=== PATIENT | male | born 1945 | race Caucasian/White ===

== ENCOUNTER 2019-11-15 17:44 | Inpatient (IN) ==
[2019-11-15] MEDS ORDERED: ADVIL SUSP 100 MG/5 ML ONE (18:02)
[2019-11-15] MEDS ORDERED: ADVIL SUSP 100 MG/5 ML PO ONE (18:05)
[2019-11-15] MEDS ORDERED: ROCEPHIN VIAL 1 GRAM 1 G in NS 100 ML IV + SPIKE MINIBAG* 100 ML IV SCH (18:15)
--- NOTE | 2019-11-15 18:15 | DR.GENAD ---
HPI - PCP Primary Care Physician: RANDA CASTELLANOS - Complaint/Symptoms Chief Complaint Doctors Comments: Patient states he has been shaking, fever, chills, cold and cough with yellow sputum production for the past 24 hours. states he worked at [employer] yesterday and complained of being cold and used the electric blanket but still could not get warm. States he is a patient of Randa Castellanos and has had stents in her heart two years ago at Dr. Humphries. He denies chest pain or SOB presently. States he has been sweating and having chills today and cannot get warm. He has decreased appetite but denies vomiting or diarrhea. He denies swelling of his hands or feet. Chief Complaint:: FAMILY AT SIDE STATED THAT HE WAS SITTING IN CHAIR 3HRS CABLE PULLER AND JUST STARTED SHAKING ALL OVER AND CANT STOP AND IS UNSTABLE AMBULATING. PATIENT DENIES HURTING OR ANYHTING ELSE OTHER THAN SHACKING AND CANT STOP - Nurses notes reviewed Nurses Notes Review: Yes - Source History Provided: Family Member - Mode of Arrival Mode of Arrival: Wheelchair - Timing Onset of Chief Complaint: 11/15/19 Came on: Gradually - Duration Duration: Constant How lon Duration: Days - Location Location: cough - Severity Severity: Moderate - Modifying Factors Worsens:: nothing Improves:: nothing PMH - PMH Past Medical History: Yes Past Medical History: Hypertension Past Medical History Comment: STENTS X3. SKIN CANCER Past Surgical History: Yes Past Surgical History Comment: HERNIA REPAIR - Family History History of Family Medical Conditions: No - Social History Alcohol Use: None Do you use any recreational Drugs:: No - infectious screening Have you traveled outside the country in the last 6 months?: No ROS - Review of Systems Constitutional: No Symptoms Reported, Chills, Diaphoresis, Fever, Loss of Appetite Eyes: No Symptoms Reported ENTM: No Symptoms Reported, Nose Congestion Respiratoy: No Symptoms Reported, Productive Cough, Short of Breath Cardiovascular: No Symptoms Reported. negative: See HPI, Chest Pain, Edema, Palpitations, Syncope, Cyanosis, Skin Mottling, Other Gastrointestinal/Abdominal: No Symptoms Reported. negative: See HPI, Abdominal Pain, Constipation, Diarrhea, Nausea, Vomiting, Food Intolerance, Other Genitourinary: No Symptoms Reported. negative: See HPI, Discharge, Dysuria, Frequency, Hematuria, Pain, Bleeding, Other Neurological: No Symptoms Reported Musculoskeletal: No Symptoms Reported Integumentary: No Symptoms Reported. negative: See HPI, Change in Color, Change in Hair/Nails, Dryness, Lesions, Lumps, Rash, Itching, Wound, Bruises, Juandice, Other Hematologic/Lymphatic: No Symptoms Reported. negative: See HPI, Anemia, Blood Clots, Easy Bleeding, Easy Bruising, Swollen Glands, Lymphadenopathy, Other Endocrine: No Symptoms Reported. negative: See HPI, Excessive Sweating, Flushing, Intolerance to Cold, Intolerance to Heat, Increased Hunger, Increased Thirst, Increased Urine, Unexplained Weight Gain, Unexplained Weight Loss, Failure to Thrive, Decreased Appetite, Other Psychiatric: No Symptoms Reported. negative: See HPI, Anxiety, Depression, Hallucinations, Excessive crying, Suicidal, Other PE - General Limitations: No Limitations General Appearance: Alert, In Distress (moderate) - Head Head Exam: Normal Inspection, Atraumatic, Normocephalic - Eyes Eye exam: Normal Appearance, PERRL, EOMI. negative: Scleral Icterus, Conjunctival Injection, Nystagmus, Miosis, Mydrasis, Periorbital Swelling, Periorbital Tenderness, Other - ENT ENT Exam: Normal Exam, Normal Oropharynx, Normal External Ear Exam, Mucous Membranes Moist, TM's Normal Bilaterally External Ear Exam: Normal External Inspection TM/Canal Exam: Bilateral Normal Nose Exam: Normal Nose Exam Mouth Exam: Normal Inspection. negative: Drooling, Trismus, Lip Swelling, Tongue Elevation, Tongue Swelling, Laceration, Other Throat Exam: Normal Inspection - Neck Neck Exam: Normal Inspection, Full ROM, Trachea Midline. negative: Tenderness, Meningismus, Lymphadenopathy, Thyromegaly, Other - Chest Chest Inspection: Normal Inspection, Symmetric Chest Wall Rise - Respiratory Respiratory Exam: Prolonged Expiratory Phase Respiratory Exam: Bilateral Decreased Breath Sounds, Left Clear to Auscultation, Right Rales, Lower Rales - Cardiovascular Cardiovascular Exam: Regular Rate, Normal Rhythm, Tachycardia, Normal Heart Sounds, Systolic Murmur - Abdominal Exam Abdominal Exam: Normal Inspection, Normal Bowel Sounds, Soft. negative: Distention, Tenderness, Guarding, Rebound, Rigidity, Dimnished Bowel Sounds, Hyperactive Bowel Sounds, Hypoactive Bowel Sounds, Organomegaly, Trauma, Incision, Ascites, Mass, Bruit, Pulsatile Mass, Hernia, Other Abdominal Tenderness: negative: RUQ, RLQ, LUQ, LLQ, Epigastrium, Suprapubic, Diffuse, Mild, Moderate, Severe, Other - Extremities Extremities Exam: Normal Inspection, Full ROM, Normal Capillary Refill. negative: Tenderness, Edema, Joint Swelling, Calf Tenderness, Other - Back Back Exam: Normal Inspection, Full ROM. negative: Tenderness, (R) CVA Tenderness, (L) CVA Tenderness, Muscle Spasm, Paraspinal Tenderness, Vertebral Tenderness, Rashes, (R) Sciatic Notch Tenderness, (L) Sciatic Notch Tendern, (R) Straight Leg Raise, (L) Straight Leg Raise, Other - Neurologic Neurological Exam: Alert, Oriented X3, CN II-XII Intact, Reflexes Normal. negative: Normal Gait (gait not tested) - Psychiatric Psychiatric Exam: Normal Affect, Normal Mood. negative: Depressed, Agitated, Anxious, Flat Affect, Manic, Homicidal Ideation, Suicidal Ideation, Other - Skin Skin Exam: Warm, Dry, Intact, Normal Color, Diaphoresis - Vital Signs Vitals: Temperature 99.8 F Pulse Rate 110 Respiratory Rate 22 Blood Pressure 106/54 O2 Sat by Pulse Oximetry 100 ROR - Labs Reviewed Laboratory Results Reviewed?: Yes (All labs and x-ray results reviewed and discussed with patient) Result Diagrams: 11/15/19 18:11 11/15/19 21:00 - XRAY XRAY Interpreted by: Radiologist (CXR: No acute cardiopulmonary disease) - EKG Rate: 136 [place]: Normal Rhythm: ST ST: Old, Inf, Infarct - Labs Reviewed Laboratory: 11/15/19 17:55 Sputum - Expectorated Sputum - Final WBC 2.7 X10^3/uL (3.6-10.0) L 11/15/19 18:11 RBC 4.47 X10^6/uL (4.7-6.0) L 11/15/19 18:11 Hgb 15.1 g/dL (13.5-18.0) 11/15/19 18:11 Hct 44.2 % (42.0-54.0) 11/15/19 18:11 MCV 98.9 fL (80.0-100.0) 11/15/19 18:11 MCH 33.8 pg (27.0-34.0) 11/15/19 18:11 MCHC 34.2 g/dL (33.0-35.0) 11/15/19 18:11 RDW 13.9 % (11.6-16.5) 11/15/19 18:11 Plt Count 108 X10^3/uL (150.0-450.0) L 11/15/19 18:11 MPV 7.0 fL (7.4-11.0) L 11/15/19 18:11 Neut % (Auto) 84.5 % (42.0-75.0) H 11/15/19 18:11 Lymph % (Auto) 14.1 % (21.0-51.0) L 11/15/19 18:11 [place] % (Auto) 1.1 % (0.0-13.0) 11/15/19 18:11 Eos % (Auto) 0.2 % (0.9-2.9) L 11/15/19 18:11 Baso % (Auto) 0.1 % (0.2-1.0) L 11/15/19 18:11 Neut # (Auto) 2.3 x10^3/uL (2.2-4.8) 11/15/19 18:11 Lymph # (Auto) 0.4 X10^3/uL (1.3-2.9) L 11/15/19 18:11 [place] # (Auto) 0 x10^3/uL (0.3-0.8) L 11/15/19 18:11 Eos # (Auto) 0.0 x10^3/uL (0.0-0.2) 11/15/19 18:11 Baso # (Auto) 0.0 X10^3/uL (0.0-0.1) 11/15/19 18:11 Absolute Nucleated RBC 0.1 /100WBC 11/15/19 18:11 Sodium 136 mmol/L (136-145) 11/15/19 18:11 Corrected Sodium TNP 11/15/19 18:11 Potassium 3.8 mmol/L (3.5-5.1) 11/15/19 18:11 Chloride 98 mmol/L (98-107) 11/15/19 18:11 Carbon Dioxide 25.9 mmol/L (21-32) 11/15/19 18:11 BUN 14 mg/dL (7-18) 11/15/19 18:11 Creatinine 1.24 mg/dL (0.70-1.30) 11/15/19 18:11 Est GFR (MDRD) Af Amer > 60 (>60) 11/15/19 18:11 Est GFR (MDRD) Non-Af > 60 (>60) 11/15/19 18:11 Glucose 76 mg/dL (65-99) 11/15/19 18:11 Lactic Acid 3.3 mmol/L (0.4-2.0) H 11/15/19 18:11 Calcium 8.9 mg/dL (8.5-10.1) 11/15/19 18:11 Corrected Calcium 9.5 mg/dL (8.5-10.1) 11/15/19 18:11 Total Bilirubin 1.80 mg/dL (0.2-1.0) H 11/15/19 18:11 AST 33 Units/L (15-37) 11/15/19 18:11 ALT 33 Units/L (12-78) 11/15/19 18:11 Alkaline Phosphatase 83 Units/L (46-116) 11/15/19 18:11 Total Protein 7.0 g/dL (6.4-8.2) 11/15/19 18:11 Albumin 3.3 g/dL (3.4-5.0) L 11/15/19 18:11 Globulin 3.7 g/dL (2.5-4.5) 11/15/19 18:11 Albumin/Globulin Ratio 0.9 Ratio (1.1-2.1) L 11/15/19 18:11 Specimen Type Clean catch urine 11/15/19 17:25 Urine Color Tyra (YELLOW) 11/15/19 17:25 Urine Appearance Clear (CLEAR) 11/15/19 17:25 Urine pH 7.0 (5.0 - 8.0) 11/15/19 17:25 Ur Specific [place] 1.015 (1.000-1.030) 11/15/19 17:25 Urine Protein 2+ (NEGATIVE) 11/15/19 17:25 Urine Glucose (UA) Negative (NEGATIVE) 11/15/19 17:25 Urine Ketones 2+ (NEGATIVE) 11/15/19 17:25 Urine Occult Blood 1+ (NEGATIVE) 11/15/19 17:25 Urine Nitrite Negative (NEGATIVE) 11/15/19 17: Urine Bilirubin 1+ (NEGATIVE) 11/15/19 17:25 Urine Urobilinogen Normal (NORMAL) 11/15/19 17:25 Ur Leukocyte Esterase 1+ (NEGATIVE) 11/15/19 17:25 Urine RBC 3-5 /HPF (0-3) A 11/15/19 17:25 Urine WBC 3-5 /HPF (0-5) 11/15/19 17:25 Ur Squamous Epith Cells Few /HPF (NEGATIVE) 11/15/19 17:25 Urine Bacteria Negative /HPF (NEGATIVE) 11/15/19 17:25 Hyaline Casts Rare /LPF (NEGATIVE) 11/15/19 17:25 Ur Culture Indicated? No/not indicated 11/15/19 17:25 Influenza Type A (PCR) Negative (NEGATIVE) 11/15/19 18:54 Influenza Type B (PCR) Negative (NEGATIVE) 11/15/19 18:54 Opioid - Opioid Risk Tool Age (Pedro box if 16-45): No History of Preadolescent Sexual Abuse: No Total: 0 Total Score Risk Category: Low Risk - Diagnosis Discharge Problem: SIRS (systemic inflammatory response syndrome), Sinus tachycardia, Sepsis Bronchitis, acute Qualifiers: Bronchitis organism: other organism Qualified Code(s): J20.8 - Acute bronchitis due to other specified organisms Neutropenia Qualifiers: Neutropenia type: unspecified Qualified Code(s): D70.9 - Neutropenia, unspecified - Discharge Plan Disposition: ADMITTED INPATIENT Condition: Stable
[2019-11-15] MEDS ORDERED: NS 1000 ML 1,000 ML ONE (18:16)
[2019-11-15] MEDS ORDERED: ROCEPHIN VIAL 1 GRAM ONE (18:21)
[2019-11-15] MEDS ORDERED: NS 100 ML IV + SPIKE MINIBAG* 100 ML IV ONE (18:21)
[2019-11-15] MEDS: NS 1000 ML 1,000 ML IV SCH (18:29)
[2019-11-15 18:46] LABS: ALANINE AMINOTRANSFERASE 33 Units/L (12-78); ALBUMIN 3.3 g/dL (3.4-5.0); ALKALINE PHOSPHATASE 83 Units/L (46-116); ASPARTATE AMINO TRANSFERASE 33 Units/L (15-37); BLOOD UREA NITROGEN 14 mg/dL (7-18); CALCIUM 8.9 mg/dL (8.5-10.1); CARBON DIOXIDE 25.9 mmol/L (21-32); CHLORIDE 98 mmol/L (98-107); COR CA(FOR HYPOALB) 9.5 mg/dL (8.5-10.1); CREATININE 1.24 mg/dL (0.70-1.30); SODIUM 136 mmol/L (136-145); eGFR NON BLACK RACES > 60 (>60)
[2019-11-15 18:48] LABS: LACTIC ACID 3.3 mmol/L (0.4-2.0)
[2019-11-15 18:52] LABS: BASOPHILS % (AUTO) 0.1 % (0.2-1.0); EOSINOPHILS % (AUTO) 0.2 % (0.9-2.9); HEMATOCRIT 44.2 % (42.0-54.0); HEMOGLOBIN 15.1 g/dL (13.5-18.0); LYMPHOCYTES # (AUTO) 0.4 X10^3/uL (1.3-2.9); LYMPHOCYTES % (AUTO) 14.1 % (21.0-51.0); MEAN CORPUSCULAR HEMOGLOBIN 33.8 pg (27.0-34.0); MEAN CORPUSCULAR HGB CONC 34.2 g/dL (33.0-35.0); MEAN CORPUSCULAR VOLUME 98.9 fL (80.0-100.0); MONOCYTES # (AUTO) 0 x10^3/uL (0.3-0.8); MONOCYTES % (AUTO) 1.1 % (0.0-13.0); NEUTROPHILS # (AUTO) 2.3 x10^3/uL (2.2-4.8); NEUTROPHILS % (AUTO) 84.5 % (42.0-75.0); PLATELET COUNT 108 X10^3/uL (150.0-450.0); RED BLOOD COUNT 4.47 X10^6/uL (4.7-6.0); RED CELL DISTRIBUTION WIDTH 13.9 % (11.6-16.5); WHITE BLOOD COUNT 2.7 X10^3/uL (3.6-10.0)
[2019-11-15] MEDS ORDERED: LEVAQUIN PREMIX IV 750 MG 750 MG/150 ML BAG IV SCH (19:00)
[2019-11-15] MEDS ORDERED: LEVAQUIN PREMIX IV 750 MG 750 MG/150 ML BAG IV ONE (19:10)
[2019-11-15 19:31] LABS: BILIRUBIN,URINE 1+ (NEGATIVE); BLOOD/HEMOGLOBIN,URINE 1+ (NEGATIVE); GLUCOSE, URINE NEGATIVE (NEGATIVE); KETONES,URINE 2+ (NEGATIVE); LEUKOCYTE ESTERASE ,URINE 1+ (NEGATIVE); NITRITES,URINE NEGATIVE (NEGATIVE); PROTEIN,URINE 2+ (NEGATIVE); UROBILINOGEN,URINE NORMAL (NORMAL)
[2019-11-15 19:41] LABS: APPEARANCE,URINE CLEAR (CLEAR); COLOR,URINE AMBER (YELLOW)
[2019-11-15 19:42] LABS: BACTERIA,URINE NEGATIVE /HPF (NEGATIVE); HYALINE CASTS, URINE RARE /LPF (NEGATIVE); SQUAMOUS EPITHELIAL CELL,UR FEW /HPF (NEGATIVE)
--- NOTE | 2019-11-15 19:51 | RAD ---
HISTORYpneumoniaSTUDYCHEST, PA/LAT ADULTCOMPARISONNoneFINDINGSThe trachea is midline. The cardiac silhouette is unremarkable . The lungs are clear without focal infiltrate or effusion. There is diffuse, mild interstitial disease. There is evidence of old granulomatous disease. The bony thorax is unremarkable.IMPRESSIONNo acute cardiopulmonary disease.Electronically signed by: LAN ENRIQUEZ (Nov 15, 2019 19:49:56)
[2019-11-15] MEDS ORDERED: NS 1/2 1000 ML IV 1,000 ML IV SCH (21:00)
[2019-11-15] MEDS ORDERED: NS 1/2 1000 ML IV 1,000 ML IV ONE (21:19)
[2019-11-15 21:25] LABS: ALANINE AMINOTRANSFERASE 30 Units/L (12-78); ALBUMIN 2.6 g/dL (3.4-5.0); ALKALINE PHOSPHATASE 84 Units/L (46-116); ASPARTATE AMINO TRANSFERASE 38 Units/L (15-37); BLOOD UREA NITROGEN 17 mg/dL (7-18); CALCIUM 8.4 mg/dL (8.5-10.1); CARBON DIOXIDE 26.2 mmol/L (21-32); CHLORIDE 98 mmol/L (98-107); COR CA(FOR HYPOALB) 9.5 mg/dL (8.5-10.1); COR NA(FOR HYPERGLY) 132 mmol/L (136-145); CREATININE 1.21 mg/dL (0.70-1.30); SODIUM 132 mmol/L (136-145); eGFR NON BLACK RACES > 60 (>60)
[2019-11-15] MEDS ORDERED: ZOSYN VIAL 4.5 GRAMS 4.5 G in NS 100 ML IV + SPIKE MINIBAG* 100 ML IV SCH (22:00)
[2019-11-15 22:13] VITALS: BMI 21.4
[2019-11-15] MEDS ORDERED: RESTORIL CAP 15 MG PO PRN (22:15)
[2019-11-15] MEDS ORDERED: POTASSIUM CHLORIDE LIQ 20 MEQ UDC PO PRN (22:50)
[2019-11-15] MEDS ORDERED: POTASSIUM CHL 60 MEQ/NS 0.45% 500 ML IV PRN (22:50)
[2019-11-15] MEDS ORDERED: K-RIDER 10 MEQ/NS 100 ML 10 MEQ/100 ML BAG IV PRN (22:50)
[2019-11-15] MEDS ORDERED: KLOR-CON PO PRN (22:50)
[2019-11-15] MEDS ORDERED: MICRO K EXTEN CAP 10 MEQ PO PRN (22:50)
[2019-11-15] MEDS ORDERED: K-DUR TAB 20 MEQ PO PRN (22:50)
[2019-11-15] MEDS ORDERED: POTASSIUM CHL 40 MEQ/NS 0.45% 500 ML IV PRN (22:50)
[2019-11-15] MEDS: ZOSYN VIAL 3.375 GRAMS 3.375 G in NS 100 ML IV + SPIKE MINIBAG* 100 ML IV SCH (22:59)
[2019-11-15] MEDS: ZOCOR TAB 10 MG PO SCH (22:59)
[2019-11-16] MEDS: XOPENEX 1.25 MG/3 ML NEBULE NEB SCH ×3 (05:20→20:50)
[2019-11-16] MEDS: ZOSYN VIAL 3.375 GRAMS 3.375 G in NS 100 ML IV + SPIKE MINIBAG* 100 ML IV SCH ×3 (05:31→21:30)
[2019-11-16 06:21] LABS: ALANINE AMINOTRANSFERASE 33 Units/L (12-78); ALBUMIN 2.5 g/dL (3.4-5.0); ALKALINE PHOSPHATASE 74 Units/L (46-116); ASPARTATE AMINO TRANSFERASE 35 Units/L (15-37); BASOPHILS % (AUTO) 0.2 % (0.2-1.0); BLOOD UREA NITROGEN 19 mg/dL (7-18); CALCIUM 8.5 mg/dL (8.5-10.1); CHLORIDE 99 mmol/L (98-107); COR CA(FOR HYPOALB) 9.7 mg/dL (8.5-10.1); CREATININE 1.25 mg/dL (0.70-1.30); HEMATOCRIT 38.8 % (42.0-54.0); HEMOGLOBIN 13.2 g/dL (13.5-18.0); LYMPHOCYTES # (AUTO) 0.8 X10^3/uL (1.3-2.9); LYMPHOCYTES % (AUTO) 5.8 % (21.0-51.0); MEAN CORPUSCULAR HEMOGLOBIN 33.6 pg (27.0-34.0); MEAN CORPUSCULAR VOLUME 98.9 fL (80.0-100.0); MEAN PLATELET VOLUME 7.4 fL (7.4-11.0); MONOCYTES # (AUTO) 1.1 x10^3/uL (0.3-0.8); MONOCYTES % (AUTO) 7.6 % (0.0-13.0); NEUTROPHILS # (AUTO) 12.3 x10^3/uL (2.2-4.8); NEUTROPHILS % (AUTO) 86.4 % (42.0-75.0); PLATELET COUNT 115 X10^3/uL (150.0-450.0); RED BLOOD COUNT 3.93 X10^6/uL (4.7-6.0); RED CELL DISTRIBUTION WIDTH 13.9 % (11.6-16.5); SODIUM 133 mmol/L (136-145); TOTAL PROTEIN 5.8 g/dL (6.4-8.2); WHITE BLOOD COUNT 14.2 X10^3/uL (3.6-10.0); eGFR NON BLACK RACES > 60 (>60)
[2019-11-16] MEDS ORDERED: LEVAQUIN PREMIX IV 750 MG 750 MG/150 ML BAG IV SCH (09:00)
[2019-11-16] MEDS ORDERED: COZAAR PO SCH (09:00)
[2019-11-16] MEDS ORDERED: NexIUM PO SCH (09:00)
[2019-11-16] MEDS ORDERED: MAGNESIUM SULFATE 1 GRAM/100 mL PREMIX 4 G/400 ML BAG IV ONE (09:05)
[2019-11-16] MEDS: MAGNESIUM SULFATE 1 GRAM/100 mL PREMIX 1 GM/100 ML BAG IV PRN ×4 (09:55→14:30)
[2019-11-16] MEDS: PROTONIX TAB 40 MG PO SCH (09:58)
[2019-11-16] MEDS: PLAVIX PO SCH (09:58)
[2019-11-16] MEDS: FERROUS GLUCONATE PO SCH (09:58)
[2019-11-16] MEDS: ASPIRIN EC 81 MG PO SCH (09:58)
[2019-11-16] MEDS: FLOMAX PO SCH (09:59)
--- NOTE | 2019-11-16 10:56 | DR.H&P ---
H&P History & Physical for Day of: H&P Date: 11/16/19 Chief Complaint Chief Complaint: cough, fever and chills Allergies Allergies Allergy/AdvReac Type Severity Reaction Status Date / Time No Known Drug Allergies Allergy Verified 11/15/19 17:58 History of Present Illness History of Present Illness: Mr. John is a 74y/o male with a PMH of CAD s/p PCI, HTN presented with cough, fever, chills and weakness. Patient states he was feeling dizzy for the past few days with decreased appetite and poor oral intake. He started shaking a lot yesterday so was brought in by his family. He reports mostly non-productive cough. He denies N/V or diarrhea. He reports bloating in the stomach. He was noted to be hypotensive on admission requiring IV fluids. ED work up included CXR which was negative for acute process. Lactate was elevated at 3.3. He was started on Levaquin, Zosyn and also Rocephin. Plan: will continue Rocephin, DC zosyn and levaquin. Add azithromycin. Resume home medications except anti-hypertensives, continue IVF. Past Medical History Past Medical History: Coronary Artery Disease, GERD and Hypertension Past Surgical History Surgical History: Angioplasty/Stents Family History Family Medical History: Diabetes Mellitus Social History Does patient currently use any type of tobacco product: No Have you used tobacco products in the last 12 months: No Type of Tobacco Use: None How many years tobacco product used: 20 Does any household member use tobacco: No Alcohol Use: None Drug Use: None Prescription drug monitoring program results: PDMP was not reviewed Medications Home Medications: No Known Drug Allergies Allergy (Verified 11/15/19 17:58) CONTINUE taking the following medications acetaminophen 650 mg PO PRN PRN 11/15/19 [History] aspirin [Aspir-81] 81 mg PO DAILY 11/15/19 [History] clopidogrel 75 mg PO DAILY 11/15/19 [History] esomeprazole magnesium [Nexium] 40 mg PO DAILY 11/15/19 [History] ferrous sulfate [iron] 325 mg PO DAILY 11/15/19 [History] losartan 50 mg PO DAILY 11/15/19 [History] red yeast rice 600 mg PO DAILY 11/15/19 [History] simvastatin 10 mg PO HS 11/15/19 [History] tamsulosin 0.4 mg PO DAILY 11/15/19 [History] Labs Result Diagrams: 11/16/19 04:10 11/16/19 04:10 Labs: 11/15/19 17:55 Sputum - Expectorated Sputum - Final Laboratory WBC 14.2 X10^3/uL (3.6-10.0) H D 11/16/19 04:10 RBC 3.93 X10^6/uL (4.7-6.0) L 11/16/19 04:10 Hgb 13.2 g/dL (13.5-18.0) L 11/16/19 04:10 Hct 38.8 % (42.0-54.0) L 11/16/19 04:10 MCV 98.9 fL (80.0-100.0) 11/16/19 04:10 MCH 33.6 pg (27.0-34.0) 11/16/19 04:10 MCHC 34.0 g/dL (33.0-35.0) 11/16/19 04:10 RDW 13.9 % (11.6-16.5) 11/16/19 04:10 Plt Count 115 X10^3/uL (150.0-450.0) L 11/16/19 04:10 MPV 7.4 fL (7.4-11.0) 11/16/19 04:10 Neut % (Auto) 86.4 % (42.0-75.0) H 11/16/19 04:10 Lymph % (Auto) 5.8 % (21.0-51.0) L 11/16/19 04:10 [place] % (Auto) 7.6 % (0.0-13.0) 11/16/19 04:10 Eos % (Auto) 0.0 % (0.9-2.9) L 11/16/19 04:10 Baso % (Auto) 0.2 % (0.2-1.0) 11/16/19 04:10 Neut # (Auto) 12.3 x10^3/uL (2.2-4.8) H 11/16/19 04:10 Lymph # (Auto) 0.8 X10^3/uL (1.3-2.9) L 11/16/19 04:10 [place] # (Auto) 1.1 x10^3/uL (0.3-0.8) H 11/16/19 04:10 Eos # (Auto) 0.0 x10^3/uL (0.0-0.2) 11/16/19 04:10 Baso # (Auto) 0.0 X10^3/uL (0.0-0.1) 11/16/19 04:10 Absolute Nucleated RBC 0.0 /100WBC 11/16/19 04:10 Sodium 133 mmol/L (136-145) L 11/16/19 04:10 Corrected Sodium TNP 11/16/19 04:10 Potassium 4.2 mmol/L (3.5-5.1) 11/16/19 04:10 Chloride 99 mmol/L (98-107) 11/16/19 04:10 Carbon Dioxide 26.0 mmol/L (21-32) 11/16/19 04:10 BUN 19 mg/dL (7-18) H 11/16/19 04:10 Creatinine 1.25 mg/dL (0.70-1.30) 11/16/19 04:10 Est GFR (MDRD) Af Amer > 60 (>60) 11/16/19 04:10 Est GFR (MDRD) Non-Af > 60 (>60) 11/16/19 04:10 Glucose 105 mg/dL (65-99) H 11/16/19 04:10 Lactic Acid 1.2 mmol/L (0.4-2.0) 11/15/19 21:00 Calcium 8.5 mg/dL (8.5-10.1) 11/16/19 04:10 Corrected Calcium 9.7 mg/dL (8.5-10.1) 11/16/19 04:10 Magnesium 1.4 mg/dL (1.7-2.9) L 11/16/19 04:10 Total Bilirubin 1.00 mg/dL (0.2-1.0) 11/16/19 04:10 AST 35 Units/L (15-37) 11/16/19 04:10 ALT 33 Units/L (12-78) 11/16/19 04:10 Alkaline Phosphatase 74 Units/L (46-116) 11/16/19 04:10 Total Protein 5.8 g/dL (6.4-8.2) L 11/16/19 04:10 Albumin 2.5 g/dL (3.4-5.0) L 11/16/19 04:10 Globulin 3.3 g/dL (2.5-4.5) 11/16/19 04:10 Albumin/Globulin Ratio 0.8 Ratio (1.1-2.1) L 11/16/19 04:10 Specimen Type Clean catch urine 11/15/19 17:25 Urine Color Tyra (YELLOW) 11/15/19 17:25 Urine Appearance Clear (CLEAR) 11/15/19 17:25 Urine pH 7.0 (5.0 - 8.0) 11/15/19 17:25 Ur Specific [place] 1.015 (1.000-1.030) 11/15/19 17:25 Urine Protein 2+ (NEGATIVE) 11/15/19 17:25 Urine Glucose (UA) Negative (NEGATIVE) 11/15/19 17:25 Urine Ketones 2+ (NEGATIVE) 11/15/19 17:25 Urine Occult Blood 1+ (NEGATIVE) 11/15/19 17:25 Urine Nitrite Negative (NEGATIVE) 11/15/19 17:25 Urine Bilirubin 1+ (NEGATIVE) 11/15/19 17:25 Urine Urobilinogen Normal (NORMAL) 11/15/19 17:25 Ur Leukocyte Esterase 1+ (NEGATIVE) 11/15/19 17:25 Urine RBC 3-5 /HPF (0-3) A 11/15/19 17:25 Urine WBC 3-5 /HPF (0-5) 11/15/19 17:25 Ur Squamous Epith Cells Few /HPF (NEGATIVE) 11/15/19 17:25 Urine Bacteria Negative /HPF (NEGATIVE) 11/15/19 17:25 Hyaline Casts Rare /LPF (NEGATIVE) 11/15/19 17:25 Ur Culture Indicated? No/not indicated 11/15/19 17:25 Influenza Type A (PCR) Negative (NEGATIVE) 11/15/19 18:54 Influenza Type B (PCR) Negative (NEGATIVE) 11/15/19 18:54 Review of Systems Constitutional: Fever, Chills and Weakness Eyes: No Symptoms Reported ENT: Nose Congestion Respiratory: Cough, SOB with Excertion and Sputum Cardiovascular: No Symptoms Reported Gastrointestinal: No Symptoms Reported Genitourinary: No Symptoms Reported Musculoskeletal: No Symptoms Reported Skin: No Symptoms Reported Neurological: No Symptoms Reported Physical Exam Vital Signs: Temperature 98.6 F Pulse Rate [Apical] 83 Pulse Rate 74 Respiratory Rate 28 Blood Pressure [Right Arm] 112/56 Blood Pressure 106/54 O2 Sat by Pulse Oximetry 100 Oriented: Normal Ear: Normal Nose: Normal Respiratory: Clear Throughout Cardiovascular: Normal Auscultation: Bowel Sounds: Normal Palpation: Normal Tenderness: Normal Musculoskeletal: Normal Psychiatric: Normal Mood Description: Calm Affect: Normal Speech Pattern: Clear and Appropriate Assessment/Plan (1) Hypotension: Qualifiers: Hypotension type: orthostatic hypotension Qualified Code(s): I95.1 - Orthostatic hypotension Status: Acute Plan: SBP in the 80s on admission, improved with hydration. Continue fluids. (2) Bronchitis, acute: Qualifiers: Bronchitis organism: other organism Qualified Code(s): J20.8 - Acute bronchitis due to other specified organisms Status: Acute Plan: CXR negative for infection, continue Rocephin and Azithromycin (3) SIRS (systemic inflammatory response syndrome): Status: Acute Plan: Hypotensive, neutropenic on admission. Improved Continue IV abx, follow cultures (4) CAD (coronary artery disease): Qualifiers: Associated angina: without angina Coronary Disease-Associated Artery/Lesion type: [place] artery [place] vs. transplanted heart: [place] heart Qualified Code(s): I25.10 - Atherosclerotic heart disease of [place] coronary artery without angina pectoris Status: Acute Plan: Hx of PCI x 3 Resume home medications except losartan due to hypotension and mild KARY Review H&P Reviewed: Yes Patient was examined?: Yes
[2019-11-16] MEDS ORDERED: ROCEPHIN VIAL 1 GRAM 1 G in NS 100 ML IV + SPIKE MINIBAG* 100 ML IV SCH (10:57)
[2019-11-16] MEDS ORDERED: ZITHROMAX TAB 250 MG PO SCH (11:00)
[2019-11-16] MEDS: PULMICORT NEB TX 0.5 MG NEB SCH ×2 (12:23→20:50)
[2019-11-16] MEDS: MYLICON TAB 80 MG CHEW PO SCH ×2 (12:29→21:30)
[2019-11-16] MEDS ORDERED: TYLENOL 325 MG TAB PO ONE (13:38)
[2019-11-16] MEDS: TYLENOL 325 MG TAB PO PRN (13:48)
[2019-11-16] MEDS ORDERED: PHARMACY CONSULT - VANCOMYCIN XX SCH (15:00)
[2019-11-16] MEDS: NS 1000 ML 1,000 ML IV SCH (15:08)
[2019-11-16] MEDS ORDERED: NS 100 ML IV + SPIKE MINIBAG* 100 ML IV ONE (15:13)
[2019-11-16] MEDS ORDERED: ZOSYN VIAL 3.375 GRAMS IV ONE (15:14)
[2019-11-16] MEDS ORDERED: VANCOMYCIN 1 GRAM PREMIX (ADDVANTAGE) 250 ML IV SCH (18:30)
[2019-11-16] MEDS ORDERED: VANCOMYCIN IV *PREMIX 1 G/200 ML BAG 1 G/200 ML PIGGYBACK IV ONE (20:24)
[2019-11-16] MEDS: ZOCOR TAB 10 MG PO SCH (20:52)
[2019-11-17] MEDS: TYLENOL 325 MG TAB PO PRN ×2 (03:02→12:47)
[2019-11-17 05:49] LABS: BASOPHILS % (AUTO) 0.1 % (0.2-1.0); EOSINOPHILS % (AUTO) 0.2 % (0.9-2.9); HEMATOCRIT 36.1 % (42.0-54.0); HEMOGLOBIN 12.2 g/dL (13.5-18.0); LYMPHOCYTES # (AUTO) 0.5 X10^3/uL (1.3-2.9); LYMPHOCYTES % (AUTO) 4.7 % (21.0-51.0); MEAN CORPUSCULAR HEMOGLOBIN 33.9 pg (27.0-34.0); MEAN CORPUSCULAR HGB CONC 33.9 g/dL (33.0-35.0); MEAN PLATELET VOLUME 7.7 fL (7.4-11.0); MONOCYTES % (AUTO) 8.8 % (0.0-13.0); NEUTROPHILS # (AUTO) 9.6 x10^3/uL (2.2-4.8); NEUTROPHILS % (AUTO) 86.2 % (42.0-75.0); PLATELET COUNT 122 X10^3/uL (150.0-450.0); RED BLOOD COUNT 3.61 X10^6/uL (4.7-6.0); RED CELL DISTRIBUTION WIDTH 13.6 % (11.6-16.5); WHITE BLOOD COUNT 11.2 X10^3/uL (3.6-10.0)
[2019-11-17] MEDS: ZOSYN VIAL 3.375 GRAMS 3.375 G in NS 100 ML IV + SPIKE MINIBAG* 100 ML IV SCH ×3 (05:49→22:25)
[2019-11-17 05:51] LABS: BLOOD UREA NITROGEN 12 mg/dL (7-18); CALCIUM 7.9 mg/dL (8.5-10.1); CARBON DIOXIDE 23.2 mmol/L (21-32); CHLORIDE 104 mmol/L (98-107); CREATININE 1.02 mg/dL (0.70-1.30); SODIUM 137 mmol/L (136-145); eGFR NON BLACK RACES > 60 (>60)
[2019-11-17] MEDS: NS 1000 ML 1,000 ML IV SCH (06:09)
[2019-11-17] MEDS: XOPENEX 1.25 MG/3 ML NEBULE NEB SCH ×3 (06:44→21:30)
--- NOTE | 2019-11-17 08:47 | PCM.PROG ---
Progress Note Progress Note for Day of Date of Exam: 11/17/19 Subjective Subjective: Patient seen at bedside, no acute events overnight. Patient states he feels better. He denies fever or chills. He reports dizziness has resolved. He states he was having some diarrhea prior to admission but that's normal for him. He does have diverticulosis and gets flares frequently. He states this was not like his usual flare up. He had 2 episodes of diarrhea since overnight. Denies vomiting. He reports bloating but no abdominal pain. One set of blood culture came back positive yesterday, switched to Vanc and Zosyn. Repeat blood cultures today, awaiting final results. Continue current treatment. BP improved with hydration. Sputum culture normal kirk, urine culture pending. WBC trending down. Will send stool studies. Past Medical Family Social History Past Med/Fam/Surg Hx: No changes since H&P Allergies: Allergies No Known Drug Allergies Allergy (Verified 11/15/19 17:58) Review of Systems ROS: No change since H&P Vital Signs and I&O's Vital Signs: Temperature 100.1 F Pulse Rate [Apical] 78 Pulse Rate 78 Respiratory Rate 25 Blood Pressure [Right Arm] 130/60 Blood Pressure 106/54 O2 Sat by Pulse Oximetry 100 Intake and Output: Intake & Output 11/14/19 11/15/19 11/16/19 11/17/19 22:59 22:59 23:59 23:59 Intake Total 950 / 950 Output Total 450 / 450 Balance 500 / 500 Physical Exam Oriented: Normal Ear: Normal Nose: Normal Respiratory: Normal Cardiovascular: Normal Auscultation: Bowel Sounds: Normal Tenderness: Normal Skin: Normal Musculoskeletal: Normal Psychiatric: Normal Mood Description: Calm Affect: Normal Speech Pattern: Clear and Appropriate Laboratory and Diagnostics Result Diagrams: 11/17/19 04:17 11/17/19 04:17 Labs: 11/15/19 18:11 Blood Blood Culture - Preliminary 11/16/19 12:40 Sputum - Expectorated Sputum Sputum Culture - Preliminary 11/16/19 12:40 Sputum - Expectorated Sputum - Final 11/15/19 17:55 Sputum - Expectorated Sputum Sputum Culture - Preliminary 11/15/19 17:55 Sputum - Expectorated Sputum - Final Laboratory WBC 11.2 X10^3/uL (3.6-10.0) H 11/17/19 04:17 RBC 3.61 X10^6/uL (4.7-6.0) L 11/17/19 04:17 Hgb 12.2 g/dL (13.5-18.0) L 11/17/19 04:17 Hct 36.1 % (42.0-54.0) L 11/17/19 04:17 MCV 100.0 fL (80.0-100.0) 11/17/19 04:17 MCH 33.9 pg (27.0-34.0) 11/17/19 04:17 MCHC 33.9 g/dL (33.0-35.0) 11/17/19 04:17 RDW 13.6 % (11.6-16.5) 11/17/19 04:17 Plt Count 122 X10^3/uL (150.0-450.0) L 11/17/19 04:17 MPV 7.7 fL (7.4-11.0) 11/17/19 04:17 Neut % (Auto) 86.2 % (42.0-75.0) H 11/17/19 04:17 Lymph % (Auto) 4.7 % (21.0-51.0) L 11/17/19 04:17 [place] % (Auto) 8.8 % (0.0-13.0) 11/17/19 04:17 Eos % (Auto) 0.2 % (0.9-2.9) L 11/17/19 04:17 Baso % (Auto) 0.1 % (0.2-1.0) L 11/17/19 04:17 Neut # (Auto) 9.6 x10^3/uL (2.2-4.8) H 11/17/19 04:17 Lymph # (Auto) 0.5 X10^3/uL (1.3-2.9) L 11/17/19 04:17 [place] # (Auto) 1.0 x10^3/uL (0.3-0.8) H 11/17/19 04:17 Eos # (Auto) 0.0 x10^3/uL (0.0-0.2) 11/17/19 04:17 Baso # (Auto) 0.0 X10^3/uL (0.0-0.1) 11/17/19 04:17 Absolute Nucleated RBC 0.0 /100WBC 11/17/19 04:17 Sodium 137 mmol/L (136-145) 11/17/19 04:17 Corrected Sodium TNP 11/17/19 04:17 Potassium 3.9 mmol/L (3.5-5.1) 11/17/19 04:17 Chloride 104 mmol/L (98-107) 11/17/19 04:17 Carbon Dioxide 23.2 mmol/L (21-32) 11/17/19 04:17 BUN 12 mg/dL (7-18) 11/17/19 04:17 Creatinine 1.02 mg/dL (0.70-1.30) 11/17/19 04:17 Est GFR (MDRD) Af Amer > 60 (>60) 11/17/19 04:17 Est GFR (MDRD) Non-Af > 60 (>60) 11/17/19 04:17 Glucose 102 mg/dL (65-99) H 11/17/19 04:17 Lactic Acid 1.2 mmol/L (0.4-2.0) 11/15/19 21:00 Calcium 7.9 mg/dL (8.5-10.1) L 11/17/19 04:17 Corrected Calcium 9.7 mg/dL (8.5-10.1) 11/16/19 04:10 Magnesium 2.0 mg/dL (1.7-2.9) 11/17/19 04:17 Total Bilirubin 1.00 mg/dL (0.2-1.0) 11/16/19 04:10 AST 35 Units/L (15-37) 11/16/19 04:10 ALT 33 Units/L (12-78) 11/16/19 04:10 Alkaline Phosphatase 74 Units/L (46-116) 11/16/19 04:10 Total Protein 5.8 g/dL (6.4-8.2) L 11/16/19 04:10 Albumin 2.5 g/dL (3.4-5.0) L 11/16/19 04:10 Globulin 3.3 g/dL (2.5-4.5) 11/16/19 04:10 Albumin/Globulin Ratio 0.8 Ratio (1.1-2.1) L 11/16/19 04:10 Specimen Type Clean catch urine 11/15/19 17:25 Urine Color Tyra (YELLOW) 11/15/19 17:25 Urine Appearance Clear (CLEAR) 11/15/19 17:25 Urine pH 7.0 (5.0 - 8.0) 11/15/19 17:25 Ur Specific [place] 1.015 (1.000-1.030) 11/15/19 17:25 Urine Protein 2+ (NEGATIVE) 11/15/19 17:25 Urine Glucose (UA) Negative (NEGATIVE) 11/15/19 17:25 Urine Ketones 2+ (NEGATIVE) 11/15/19 17:25 Urine Occult Blood 1+ (NEGATIVE) 11/15/19 17:25 Urine Nitrite Negative (NEGATIVE) 11/15/19 17:25 Urine Bilirubin 1+ (NEGATIVE) 11/15/19 17:25 Urine Urobilinogen Normal (NORMAL) 11/15/19 17:25 Ur Leukocyte Esterase 1+ (NEGATIVE) 11/15/19 17:25 Urine RBC 3-5 /HPF (0-3) A 11/15/19 17:25 Urine WBC 3-5 /HPF (0-5) 11/15/19 17:25 Ur Squamous Epith Cells Few /HPF (NEGATIVE) 11/15/19 17:25 Urine Bacteria Negative /HPF (NEGATIVE) 11/15/19 17:25 Hyaline Casts Rare /LPF (NEGATIVE) 11/15/19 17:25 Ur Culture Indicated? No/not indicated 11/15/19 17:25 Influenza Type A (PCR) Negative (NEGATIVE) 11/15/19 18:54 Influenza Type B (PCR) Negative (NEGATIVE) 11/15/19 18:54 Plan (1) Hypotension: Status: Acute Qualifiers: Hypotension type: orthostatic hypotension Qualified Code(s): I95.1 - Orthostatic hypotension Plan: Improved (2) Bronchitis, acute: Status: Acute Qualifiers: Bronchitis organism: other organism Qualified Code(s): J20.8 - Acute bronchitis due to other specified organisms Plan: CXR negative for infection (3) SIRS (systemic inflammatory response syndrome): Status: Acute Plan: Hypotensive, neutropenic on admission. Blood culture positive Continue IV abx, follow cultures (4) CAD (coronary artery disease): Status: Acute Qualifiers: Associated angina: without angina Coronary Disease-Associated Artery/Lesion type: [place] artery [place] vs. transplanted heart: [place] heart Qualified Code(s): I25.10 - Atherosclerotic heart disease of [place] coronary artery without angina pectoris Plan: Hx of PCI x 3 Resume home medications except losartan due to hypotension
[2019-11-17] MEDS ORDERED: VANCOMYCIN 1 GRAM PREMIX (ADDVANTAGE) 250 ML IV SCH (09:00)
[2019-11-17] MEDS: PULMICORT NEB TX 0.5 MG NEB SCH ×2 (09:13→21:30)
[2019-11-17] MEDS: ASPIRIN EC 81 MG PO SCH (09:36)
[2019-11-17] MEDS: FERROUS GLUCONATE PO SCH (09:37)
[2019-11-17] MEDS: FLOMAX PO SCH (09:37)
[2019-11-17] MEDS: MYLICON TAB 80 MG CHEW PO SCH ×2 (09:37→21:06)
[2019-11-17] MEDS: PLAVIX PO SCH (09:37)
[2019-11-17] MEDS: PROTONIX TAB 40 MG PO SCH (09:37)
[2019-11-17] MEDS: VANCOMYCIN IV *PREMIX 1 G/200 ML BAG 1 G/200 ML PIGGYBACK IV SCH ×2 (10:14→21:06)
[2019-11-17] MEDS ORDERED: MOTRIN TAB 400 MG PO ONE (16:01)
[2019-11-17] MEDS: ZyrTEC TAB 10 MG PO SCH (16:13)
[2019-11-17] MEDS: FLONASE NASAL SPRAY ENOSTRIL SCH (16:13)
[2019-11-17] MEDS: ZOCOR TAB 10 MG PO SCH (21:06)
[2019-11-17] MEDS ORDERED: RESTORIL CAP 15 MG PO ONE (21:13)
[2019-11-17] MEDS: RESTORIL CAP 15 MG PO PRN (21:25)
[2019-11-17] MEDS ORDERED: ROBITUSSIN DM ONE (22:56)
[2019-11-17] MEDS: ROBITUSSIN DM PO PRN (23:00)
[2019-11-17] MEDS ORDERED: LEVAQUIN PREMIX IV 750 MG 750 MG/150 ML BAG IV SCH (23:45)
[2019-11-18] MEDS: ZOSYN VIAL 3.375 GRAMS 3.375 G in NS 100 ML IV + SPIKE MINIBAG* 100 ML IV SCH ×3 (05:08→22:32)
[2019-11-18] MEDS: ROBITUSSIN DM PO PRN ×3 (05:09→21:46)
[2019-11-18 05:44] LABS: BASOPHILS % (AUTO) 0.1 % (0.2-1.0); EOSINOPHILS # (AUTO) 0.1 x10^3/uL (0.0-0.2); EOSINOPHILS % (AUTO) 0.7 % (0.9-2.9); HEMATOCRIT 36.1 % (42.0-54.0); HEMOGLOBIN 12.3 g/dL (13.5-18.0); LYMPHOCYTES # (AUTO) 0.6 X10^3/uL (1.3-2.9); MEAN CORPUSCULAR HGB CONC 34.1 g/dL (33.0-35.0); MEAN CORPUSCULAR VOLUME 99.9 fL (80.0-100.0); MEAN PLATELET VOLUME 7.9 fL (7.4-11.0); MONOCYTES # (AUTO) 0.8 x10^3/uL (0.3-0.8); NEUTROPHILS # (AUTO) 9.1 x10^3/uL (2.2-4.8); NEUTROPHILS % (AUTO) 85.2 % (42.0-75.0); PLATELET COUNT 130 X10^3/uL (150.0-450.0); RED BLOOD COUNT 3.61 X10^6/uL (4.7-6.0); WHITE BLOOD COUNT 10.7 X10^3/uL (3.6-10.0)
[2019-11-18 05:53] LABS: BLOOD UREA NITROGEN 7 mg/dL (7-18); CALCIUM 8.2 mg/dL (8.5-10.1); CARBON DIOXIDE 22.7 mmol/L (21-32); CHLORIDE 105 mmol/L (98-107); CREATININE 0.93 mg/dL (0.70-1.30); SODIUM 137 mmol/L (136-145); eGFR NON BLACK RACES > 60 (>60)
[2019-11-18] MEDS: XOPENEX 1.25 MG/3 ML NEBULE NEB SCH ×3 (06:08→20:20)
[2019-11-18] MEDS: PULMICORT NEB TX 0.5 MG NEB SCH ×2 (08:15→20:20)
[2019-11-18] MEDS ORDERED: PHARMACY COMMENT IV NR (08:30)
--- NOTE | 2019-11-18 08:38 | CT ---
HISTORYABDOMINAL PAIN, DIARRHEA, BACTERMEIASTUDYCT abdomen and pelvis after intravenous infusion of 100 mL Omnipaque 350. Sagittal and coronal reformations were provided. Dose reduction techniques were utilized.COMPARISONNoneFINDINGSThere are small bilateral pleural effusions. Near the dome of the right lobe of the liver is a low-attenuation 2 cm mass with slightly irregular borders and some peripheral nodular enhancement. Posteriorly in the right lobe is a similar lesion measuring 2.2 cm diameter with low-attenuation and irregular margins and some internal septations. There is a final lesion lateral to the gallbladder fossa measuring about 1 cm in diameter. There is a 7.5 mm low-attenuation nodule in the caudate lobe. The gallbladder appears contracted. The adrenal glands and spleen are unremarkable. There is enlargement of the uncinate process of the pancreas measuring up to 3.6 cm AP diameter and 5.6 cm coronal length. There is no encasement of the superior mesenteric vein. It is adjacent to the proximal portal vein. There is a 1.9 cm dorsal cyst in the mid body of the left kidney. There is no hydronephrosis. The appendix appears normal. There is a supraumbilical ventral hernia with a 5.4 cm wide defect in the abdominal wall. The hernia contains peritoneal fat only. There is severe sigmoid diverticulosis without stranding of adjacent fat planes. There is less severe diverticular involvement of the left colon. The prostate is mildly enlarged measuring 5 cm transverse diameter. There is no ascites or adenopathy. There is a small hiatal hernia. There are degenerative changes in the spine.IMPRESSION1. Small pleural effusions and small hiatal hernia2. Severe sigmoid diverticulosis3. Supraumbilical ventral hernia containing peritoneal fat through a 5.4 cm wide defect in the abdominal wall4. Mild enlargement of the prostate5. Enlarged uncinate process of the pancreas, isointense with body and tail but suspicious for neoplastic mass.6. Numerous liver lesions suspicious for metastatic diseaseElectronically signed by: UNIQUE BYERS (Nov 18, 2019 08:36:47)
[2019-11-18] MEDS: FERROUS GLUCONATE PO SCH (09:06)
[2019-11-18] MEDS: PLAVIX PO SCH (09:07)
[2019-11-18] MEDS: ZyrTEC TAB 10 MG PO SCH (09:07)
[2019-11-18] MEDS: FLOMAX PO SCH (09:07)
[2019-11-18] MEDS: MYLICON TAB 80 MG CHEW PO SCH ×2 (09:07→21:45)
[2019-11-18] MEDS: PROTONIX TAB 40 MG PO SCH (09:07)
[2019-11-18] MEDS: ASPIRIN EC 81 MG PO SCH (09:07)
[2019-11-18] MEDS: FLONASE NASAL SPRAY ENOSTRIL SCH (09:12)
[2019-11-18 09:19] LABS: ALBUMIN 2.4 g/dL (3.4-5.0); BILIRUBIN,DIRECT 0.3 mg/dL (0-0.2); TOTAL PROTEIN 5.3 g/dL (6.4-8.2)
[2019-11-18 09:32] LABS: CREATININE 0.98 mg/dL (0.70-1.30); VANCOMYCIN,TROUGH 8.6 ug/mL (15-20)
[2019-11-18] MEDS: VANCOMYCIN IV *PREMIX 1 G/200 ML BAG 1 G/200 ML PIGGYBACK IV SCH ×2 (09:55→21:45)
[2019-11-18] MEDS: TYLENOL 325 MG TAB PO PRN (12:09)
--- NOTE | 2019-11-18 13:39 | RAD ---
HISTORYSOB, FOLLOW UPSTUDYCHEST, 1 VIEWCOMPARISONChest film November 15, 2019FINDINGSThe trachea is midline. The cardiac silhouette is unremarkable. There is diffuse mild interstitial lung disease but no acute infiltrates or effusions. the bony thorax is unremarkable.IMPRESSIONMild chronic lung changes but no acute process and no change from the recent film 15 November 2019.Electronically signed by: BETTY DIOR (Nov 18, 2019 13:38:10)
[2019-11-18] MEDS ORDERED: LASIX IVP ONE (14:47)
--- NOTE | 2019-11-18 15:07 | PCM.PROG ---
Progress Note Progress Note for Day of Date of Exam: 11/18/19 Subjective Subjective: Patient seen at bedside, no events overnight. He states he feels slightly better. He reports SOB with exertion and ambulation in the room. He is wearing 2L NC. He continues to have 1-2 loose stools which he states is normal for him. He denies seeing any blood in the stool. He denies recent weight loss, does report decreased energy. He has been eating and drinking ok. Denies N/V. CTAP done yesterday showed sigmoid diverticulosis, pancreatic mass with liver metastasis concerning for malignancy. Findings discussed with patient and family. Dr. Hines consulted. Will order tumor markers. Patient's repeat blood cultures are negative, 1/2 set from admission is likely growing a contaminant, will obtain the final report tomorrow. Continue abx for now. Will get a CXR. CTAP did show small bilateral effusions, will give one dose of IV Lasix. Past Medical Family Social History Past Med/Fam/Surg Hx: No changes since H&P Allergies: Allergies No Known Drug Allergies Allergy (Verified 11/15/19 17:58) Review of Systems ROS: No change since H&P Vital Signs and I&O's Vital Signs: Temperature 98.3 F Pulse Rate [Apical] 85 Pulse Rate 93 Respiratory Rate 44 Blood Pressure [Right Arm] 121/59 Blood Pressure 132/60 O2 Sat by Pulse Oximetry 98 Intake and Output: Intake & Output 11/15/19 11/16/19 11/17/19 11/18/19 22:59 23:59 23:59 23:59 Intake Total 3270 / 3270 278 / 278 Output Total 550 / 550 325 / 325 Balance 2720 / 2720 -47 / -47 Physical Exam Oriented: Normal Ear: Normal Nose: Normal Respiratory: Normal Cardiovascular: Normal Auscultation: Bowel Sounds: Normal Tenderness: Normal Skin: Normal Musculoskeletal: Normal Psychiatric: Normal Mood Description: Calm Affect: Normal Speech Pattern: Clear and Appropriate Laboratory and Diagnostics Result Diagrams: 11/18/19 04:29 11/18/19 09:09 Labs: 11/17/19 09:06 Stool Stool Culture - Preliminary 11/17/19 09:06 Stool - Final 11/15/19 18:11 Blood Blood Culture - Preliminary 11/15/19 18:24 Blood Blood Culture - Preliminary 11/16/19 12:40 Sputum - Expectorated Sputum Sputum Culture - Final 11/16/19 12:40 Sputum - Expectorated Sputum - Final 11/15/19 17:55 Sputum - Expectorated Sputum Sputum Culture - Final 11/15/19 17:55 Sputum - Expectorated Sputum - Final 11/16/19 15:10 Urine,Clean Catch Urine Culture - Final Laboratory WBC 10.7 X10^3/uL (3.6-10.0) H 11/18/19 04:29 RBC 3.61 X10^6/uL (4.7-6.0) L 11/18/19 04:29 Hgb 12.3 g/dL (13.5-18.0) L 11/18/19 04:29 Hct 36.1 % (42.0-54.0) L 11/18/19 04:29 MCV 99.9 fL (80.0-100.0) 11/18/19 04:29 MCH 34.0 pg (27.0-34.0) 11/18/19 04:29 MCHC 34.1 g/dL (33.0-35.0) 11/18/19 04:29 RDW 14.0 % (11.6-16.5) 11/18/19 04:29 Plt Count 130 X10^3/uL (150.0-450.0) L 11/18/19 04:29 MPV 7.9 fL (7.4-11.0) 11/18/19 04:29 Neut % (Auto) 85.2 % (42.0-75.0) H 11/18/19 04:29 Lymph % (Auto) 6.0 % (21.0-51.0) L 11/18/19 04:29 [place] % (Auto) 8.0 % (0.0-13.0) 11/18/19 04:29 Eos % (Auto) 0.7 % (0.9-2.9) L 11/18/19 04:29 Baso % (Auto) 0.1 % (0.2-1.0) L 11/18/19 04:29 Neut # (Auto) 9.1 x10^3/uL (2.2-4.8) H 11/18/19 04:29 Lymph # (Auto) 0.6 X10^3/uL (1.3-2.9) L 11/18/19 04:29 [place] # (Auto) 0.8 x10^3/uL (0.3-0.8) 11/18/19 04:29 Eos # (Auto) 0.1 x10^3/uL (0.0-0.2) 11/18/19 04:29 Baso # (Auto) 0.0 X10^3/uL (0.0-0.1) 11/18/19 04:29 Absolute Nucleated RBC 0.0 /100WBC 11/18/19 04:29 Sodium 137 mmol/L (136-145) 11/18/19 04:29 Corrected Sodium TNP 11/18/19 04:29 Potassium 4.0 mmol/L (3.5-5.1) 11/18/19 04:29 Chloride 105 mmol/L (98-107) 11/18/19 04:29 Carbon Dioxide 22.7 mmol/L (21-32) 11/18/19 04:29 BUN 7 mg/dL (7-18) 11/18/19 04:29 Creatinine 0.98 mg/dL (0.70-1.30) 11/18/19 09:09 Est GFR (MDRD) Af Amer > 60 (>60) 11/18/19 04:29 Est GFR (MDRD) Non-Af > 60 (>60) 11/18/19 04:29 Glucose 92 mg/dL (65-99) 11/18/19 04:29 Lactic Acid 1.2 mmol/L (0.4-2.0) 11/15/19 21:00 Calcium 8.2 mg/dL (8.5-10.1) L 11/18/19 04:29 Corrected Calcium 9.7 mg/dL (8.5-10.1) 11/16/19 04:10 Magnesium 2.0 mg/dL (1.7-2.9) 11/17/19 04:17 Total Bilirubin 0.90 mg/dL (0.2-1.0) 11/18/19 04:29 Direct Bilirubin 0.30 mg/dL (0-0.2) H 11/18/19 04:29 Indirect Bilirubin 0.60 mg/dL (0.2-0.8) 11/18/19 04:29 AST 20 Units/L (15-37) 11/18/19 04:29 ALT 27 Units/L (12-78) 11/18/19 04:29 Alkaline Phosphatase 74 Units/L (46-116) 11/18/19 04:29 Total Protein 5.3 g/dL (6.4-8.2) L 11/18/19 04:29 Albumin 2.4 g/dL (3.4-5.0) L 11/18/19 04:29 Globulin 2.9 g/dL (2.5-4.5) 11/18/19 04:29 Albumin/Globulin Ratio 0.8 Ratio (1.1-2.1) L 11/18/19 04:29 Specimen Type Clean catch urine 11/15/19 17:25 Urine Color Tyra (YELLOW) 11/15/19 17:25 Urine Appearance Clear (CLEAR) 11/15/19 17:25 Urine pH 7.0 (5.0 - 8.0) 11/15/19 17:25 Ur Specific [place] 1.015 (1.000-1.030) 11/15/19 17:25 Urine Protein 2+ (NEGATIVE) 11/15/19 17:25 Urine Glucose (UA) Negative (NEGATIVE) 11/15/19 17:25 Urine Ketones 2+ (NEGATIVE) 11/15/19 17:25 Urine Occult Blood 1+ (NEGATIVE) 11/15/19 17:25 Urine Nitrite Negative (NEGATIVE) 11/15/19 17:25 Urine Bilirubin 1+ (NEGATIVE) 11/15/19 17:25 Urine Urobilinogen Normal (NORMAL) 11/15/19 17:25 Ur Leukocyte Esterase 1+ (NEGATIVE) 11/15/19 17:25 Urine RBC 3-5 /HPF (0-3) A 11/15/19 17:25 Urine WBC 3-5 /HPF (0-5) 11/15/19 17:25 Ur Squamous Epith Cells Few /HPF (NEGATIVE) 11/15/19 17:25 Urine Bacteria Negative /HPF (NEGATIVE) 11/15/19 17:25 Hyaline Casts Rare /LPF (NEGATIVE) 11/15/19 17:25 Ur Culture Indicated? No/not indicated 11/15/19 17:25 Stool Description 75g black loose 11/17/19 09:06 Stl Occult Blood (IFOB) Positive (NEGATIVE) A 11/17/19 09:06 Stool for White Cells Positive (NEGATIVE) A 11/17/19 09:06 Stl C. diff Tox B Gene Negative (NEGATIVE) 11/17/19 09:06 Stl C. diff 027-NAP1-BI Negative (NEGATIVE) 11/17/19 09:06 Vancomycin Trough 8.6 ug/mL (15-20) L 11/18/19 09:09 Influenza Type A (PCR) Negative (NEGATIVE) 11/15/19 18:54 Influenza Type B (PCR) Negative (NEGATIVE) 11/15/19 18:54 Plan (1) Hypotension: Status: Acute Qualifiers: Hypotension type: orthostatic hypotension Qualified Code(s): I95.1 - Orthostatic hypotension (2) Bronchitis, acute: Status: Acute Qualifiers: Bronchitis organism: other organism Qualified Code(s): J20.8 - Acute bronchitis due to other specified organisms Plan: CXR negative for infection (3) SIRS (systemic inflammatory response syndrome): Status: Acute Plan: Hypotensive, neutropenic on admission. Blood culture positive Continue IV abx, follow cultures (4) CAD (coronary artery disease): Status: Acute Qualifiers: Associated angina: without angina Coronary Disease-Associated Artery/Lesion type: [place] artery [place] vs. transplanted heart: [place] heart Qualified Code(s): I25.10 - Atherosclerotic heart disease of [place] coronary artery without angina pectoris Plan: Hx of PCI x 3 Resume home medications except losartan due to hypotension (5) Pancreatic mass: Status: Acute (6) Liver metastases: Status: Acute
[2019-11-18] MEDS ORDERED: DULCOLAX TAB EC 5 MG PO ONE ×2 (16:54→17:14)
[2019-11-18] MEDS ORDERED: CITROMA PO ONE (16:54)
[2019-11-18] MEDS ORDERED: CITROMA ONE (17:15)
[2019-11-18] MEDS ORDERED: NS 250 ML IV 250 ML IV ONE (21:10)
[2019-11-18] MEDS: ZOCOR TAB 10 MG PO SCH (21:45)
[2019-11-18] MEDS: RESTORIL CAP 15 MG PO PRN (21:46)
[2019-11-19] MEDS: XOPENEX 1.25 MG/3 ML NEBULE NEB SCH ×4 (05:14→18:42)
[2019-11-19] MEDS: ZOSYN VIAL 3.375 GRAMS 3.375 G in NS 100 ML IV + SPIKE MINIBAG* 100 ML IV SCH (05:23)
[2019-11-19] MEDS: TYLENOL 325 MG TAB PO PRN (05:23)
[2019-11-19 05:39] LABS: BASOPHILS % (AUTO) 0.1 % (0.2-1.0); EOSINOPHILS % (AUTO) 0.5 % (0.9-2.9); HEMATOCRIT 34.8 % (42.0-54.0); HEMOGLOBIN 12.1 g/dL (13.5-18.0); LYMPHOCYTES # (AUTO) 0.9 X10^3/uL (1.3-2.9); MEAN CORPUSCULAR HEMOGLOBIN 34.2 pg (27.0-34.0); MEAN CORPUSCULAR HGB CONC 34.7 g/dL (33.0-35.0); MEAN CORPUSCULAR VOLUME 98.4 fL (80.0-100.0); MEAN PLATELET VOLUME 7.5 fL (7.4-11.0); MONOCYTES # (AUTO) 1.1 x10^3/uL (0.3-0.8); MONOCYTES % (AUTO) 11.1 % (0.0-13.0); NEUTROPHILS # (AUTO) 7.6 x10^3/uL (2.2-4.8); NEUTROPHILS % (AUTO) 79.3 % (42.0-75.0); PLATELET COUNT 160 X10^3/uL (150.0-450.0); RED BLOOD COUNT 3.54 X10^6/uL (4.7-6.0); RED CELL DISTRIBUTION WIDTH 13.7 % (11.6-16.5); WHITE BLOOD COUNT 9.6 X10^3/uL (3.6-10.0)
[2019-11-19 06:21] LABS: BLOOD UREA NITROGEN 8 mg/dL (7-18); CALCIUM 8.3 mg/dL (8.5-10.1); CARBON DIOXIDE 23.1 mmol/L (21-32); CHLORIDE 104 mmol/L (98-107); CREATININE 0.88 mg/dL (0.70-1.30); MAGNESIUM 1.8 mg/dL (1.7-2.9); SODIUM 137 mmol/L (136-145); eGFR NON BLACK RACES > 60 (>60)
[2019-11-19] MEDS ORDERED: DIPRIVAN VIAL 20 ML ONE (07:52)
[2019-11-19] MEDS ORDERED: NS 500 ML IV 500 ML IV ONE (07:54)
--- NOTE | 2019-11-19 08:21 | OR.IMMED ---
Immediate Post-Op Note - Immediate Post-Op Note Pre-Op Diagnosis: liver mets , positive blood in stool Post-Op Diagnosis: extensive diverticulosis , no bleeding . no neoplasm or inflamation . mild nonspecific colitis and hemorrhoids . Procedure: colonoscopy with Bx. Surgeon/Communications Project Lead: Victor Manuel Specimens Removed: sigmoid Bx Drains: NONE Condition: Stable (to advance diet , plan for laparoscopy .)
[2019-11-19] MEDS: PULMICORT NEB TX 0.5 MG NEB SCH ×2 (08:44→20:02)
[2019-11-19] MEDS: FERROUS GLUCONATE PO SCH (09:54)
[2019-11-19] MEDS: COZAAR PO SCH (09:54)
[2019-11-19] MEDS: FLOMAX PO SCH (09:55)
[2019-11-19] MEDS: PROTONIX TAB 40 MG PO SCH (09:55)
[2019-11-19] MEDS: ZyrTEC TAB 10 MG PO SCH (09:55)
[2019-11-19] MEDS: FLONASE NASAL SPRAY ENOSTRIL SCH (09:55)
[2019-11-19] MEDS: MYLICON TAB 80 MG CHEW PO SCH ×2 (09:55→20:56)
[2019-11-19] MEDS ORDERED: STERILE WATER IRRIGATION IR ONE (12:43)
[2019-11-19] MEDS ORDERED: LASIX IVP ONE (15:34)
[2019-11-19] MEDS: MUCOMYST 20% 200 MG/ML NEB SCH ×2 (16:47→18:42)
[2019-11-19] MEDS: ZOCOR TAB 10 MG PO SCH (20:54)
[2019-11-19] MEDS: RESTORIL CAP 15 MG PO PRN (20:54)
--- NOTE | 2019-11-19 22:23 | PCM.PROG ---
Progress Note Progress Note for Day of Date of Exam: 11/19/19 Subjective Subjective: Patient seen at bedside post colonoscopy. He reports doing well. Colonoscopy showed some non-specific sigmoid diverticulosis, no mass or neoplasm. He is currently on regular diet, tolerating well. He is scheduled for a laparoscopy tomorrow for liver lesion biopsy. Patient and family updated at bedside. Cultures have been (-) so DC antibiotics. Monitor AM labs, follow surgery recommendations. Past Medical Family Social History Past Med/Fam/Surg Hx: No changes since H&P Allergies: Allergies No Known Drug Allergies Allergy (Verified 11/15/19 17:58) Review of Systems ROS: No change since H&P Vital Signs and I&O's Vital Signs: Temperature 98.9 F Pulse Rate [Apical] 85 Pulse Rate 75 Respiratory Rate 27 Blood Pressure [Right Arm] 121/59 Blood Pressure 137/65 O2 Sat by Pulse Oximetry 93 Intake and Output: Intake & Output 11/16/19 11/17/19 11/18/19 11/19/19 23:59 23:59 23:59 23:59 Intake Total 3270 / 3270 1509 / 1509 1059 / 1059 Output Total 550 / 550 925 / 925 Balance 2720 / 2720 584 / 584 1059 / 1059 Physical Exam Oriented: Normal Ear: Normal Nose: Normal Respiratory: Rales Cardiovascular: Normal Auscultation: Bowel Sounds: Normal Tenderness: Normal Skin: Normal Musculoskeletal: Normal Psychiatric: Normal Mood Description: Calm Affect: Normal Speech Pattern: Clear and Appropriate Laboratory and Diagnostics Result Diagrams: 11/20/19 04:02 11/20/19 04:02 Labs: 11/15/19 18:11 Blood Blood Culture - Preliminary 11/15/19 18:24 Blood Blood Culture - Preliminary 11/17/19 09:06 Stool Stool Culture - Final 11/17/19 09:06 Stool - Final 11/17/19 08:40 Blood Blood Culture - Preliminary 11/17/19 08:37 Blood Blood Culture - Preliminary 11/16/19 12:40 Sputum - Expectorated Sputum Sputum Culture - Final 11/16/19 12:40 Sputum - Expectorated Sputum - Final 11/15/19 17:55 Sputum - Expectorated Sputum Sputum Culture - Final 11/15/19 17:55 Sputum - Expectorated Sputum - Final 11/16/19 15:10 Urine,Clean Catch Urine Culture - Final Laboratory WBC 9.6 X10^3/uL (3.6-10.0) 11/19/19 04:25 RBC 3.54 X10^6/uL (4.7-6.0) L 11/19/19 04:25 Hgb 12.1 g/dL (13.5-18.0) L 11/19/19 04:25 Hct 34.8 % (42.0-54.0) L 11/19/19 04:25 MCV 98.4 fL (80.0-100.0) 11/19/19 04:25 MCH 34.2 pg (27.0-34.0) H 11/19/19 04:25 MCHC 34.7 g/dL (33.0-35.0) 11/19/19 04:25 RDW 13.7 % (11.6-16.5) 11/19/19 04:25 Plt Count 160 X10^3/uL (150.0-450.0) 11/19/19 04:25 MPV 7.5 fL (7.4-11.0) 11/19/19 04:25 Neut % (Auto) 79.3 % (42.0-75.0) H 11/19/19 04:25 Lymph % (Auto) 9.0 % (21.0-51.0) L 11/19/19 04:25 [place] % (Auto) 11.1 % (0.0-13.0) 11/19/19 04:25 Eos % (Auto) 0.5 % (0.9-2.9) L 11/19/19 04:25 Baso % (Auto) 0.1 % (0.2-1.0) L 11/19/19 04:25 Neut # (Auto) 7.6 x10^3/uL (2.2-4.8) H 11/19/19 04:25 Lymph # (Auto) 0.9 X10^3/uL (1.3-2.9) L 11/19/19 04:25 [place] # (Auto) 1.1 x10^3/uL (0.3-0.8) H 11/19/19 04:25 Eos # (Auto) 0.0 x10^3/uL (0.0-0.2) 11/19/19 04:25 Baso # (Auto) 0.0 X10^3/uL (0.0-0.1) 11/19/19 04:25 Absolute Nucleated RBC 0.0 /100WBC 11/19/19 04:25 Sodium 137 mmol/L (136-145) 11/19/19 04:25 Corrected Sodium TNP 11/19/19 04:25 Potassium 3.7 mmol/L (3.5-5.1) 11/19/19 04:25 Chloride 104 mmol/L (98-107) 11/19/19 04:25 Carbon Dioxide 23.1 mmol/L (21-32) 11/19/19 04:25 BUN 8 mg/dL (7-18) 11/19/19 04:25 Creatinine 0.88 mg/dL (0.70-1.30) 11/19/19 04:25 Est GFR (MDRD) Af Amer > 60 (>60) 11/19/19 04:25 Est GFR (MDRD) Non-Af > 60 (>60) 11/19/19 04:25 Glucose 92 mg/dL (65-99) 11/19/19 04:25 Lactic Acid 1.2 mmol/L (0.4-2.0) 11/15/19 21:00 Calcium 8.3 mg/dL (8.5-10.1) L 11/19/19 04:25 Corrected Calcium 9.7 mg/dL (8.5-10.1) 11/16/19 04:10 Magnesium 1.8 mg/dL (1.7-2.9) 11/19/19 04:25 Total Bilirubin 0.90 mg/dL (0.2-1.0) 11/18/19 04:29 Direct Bilirubin 0.30 mg/dL (0-0.2) H 11/18/19 04:29 Indirect Bilirubin 0.60 mg/dL (0.2-0.8) 11/18/19 04:29 AST 20 Units/L (15-37) 11/18/19 04:29 ALT 27 Units/L (12-78) 11/18/19 04:29 Alkaline Phosphatase 74 Units/L (46-116) 11/18/19 04:29 Total Protein 5.3 g/dL (6.4-8.2) L 11/18/19 04:29 Albumin 2.4 g/dL (3.4-5.0) L 11/18/19 04:29 Globulin 2.9 g/dL (2.5-4.5) 11/18/19 04:29 Albumin/Globulin Ratio 0.8 Ratio (1.1-2.1) L 11/18/19 04:29 Specimen Type Clean catch urine 11/15/19 17:25 Urine Color Tyra (YELLOW) 11/15/19 17:25 Urine Appearance Clear (CLEAR) 11/15/19 17:25 Urine pH 7.0 (5.0 - 8.0) 11/15/19 17:25 Ur Specific [place] 1.015 (1.000-1.030) 11/15/19 17:25 Urine Protein 2+ (NEGATIVE) 11/15/19 17:25 Urine Glucose (UA) Negative (NEGATIVE) 11/15/19 17:25 Urine Ketones 2+ (NEGATIVE) 11/15/19 17:25 Urine Occult Blood 1+ (NEGATIVE) 11/15/19 17:25 Urine Nitrite Negative (NEGATIVE) 11/15/19 17:25 Urine Bilirubin 1+ (NEGATIVE) 11/15/19 17:25 Urine Urobilinogen Normal (NORMAL) 11/15/19 17:25 Ur Leukocyte Esterase 1+ (NEGATIVE) 11/15/19 17:25 Urine RBC 3-5 /HPF (0-3) A 11/15/19 17:25 Urine WBC 3-5 /HPF (0-5) 11/15/19 17:25 Ur Squamous Epith Cells Few /HPF (NEGATIVE) 11/15/19 17:25 Urine Bacteria Negative /HPF (NEGATIVE) 11/15/19 17:25 Hyaline Casts Rare /LPF (NEGATIVE) 11/15/19 17:25 Ur Culture Indicated? No/not indicated 11/15/19 17:25 Stool Description 75g black loose 11/17/19 09:06 Stl Occult Blood (IFOB) Positive (NEGATIVE) A 11/17/19 09:06 Stool for White Cells Positive (NEGATIVE) A 11/17/19 09:06 Stl C. diff Tox B Gene Negative (NEGATIVE) 11/17/19 09:06 Stl C. diff 027-NAP1-BI Negative (NEGATIVE) 11/17/19 09:06 Vancomycin Trough 8.6 ug/mL (15-20) L 11/18/19 09:09 Influenza Type A (PCR) Negative (NEGATIVE) 11/15/19 18:54 Influenza Type B (PCR) Negative (NEGATIVE) 11/15/19 18:54 Tissue Pathology To follow 11/19/19 08:08 Plan (1) Hypotension: Status: Acute Qualifiers: Hypotension type: orthostatic hypotension Qualified Code(s): I95.1 - Orthostatic hypotension Plan: Resolved (2) Bronchitis, acute: Status: Acute Qualifiers: Bronchitis organism: other organism Qualified Code(s): J20.8 - Acute bronchitis due to other specified organisms Plan: CXR negative for infection (3) SIRS (systemic inflammatory response syndrome): Status: Acute Plan: (4) CAD (coronary artery disease): Status: Acute Qualifiers: Associated angina: without angina Coronary Disease-Associated Artery/Lesion type: [place] artery [place] vs. transplanted heart: [place] heart Qualified Code(s): I25.10 - Atherosclerotic heart disease of [place] coronary artery without angina pectoris Plan: Hx of PCI x 3 Resume home medications except losartan due to hypotension (5) Pancreatic mass: Status: Acute (6) Liver metastases: Status: Acute (7) Hypokalemia: Status: Acute (8) Sigmoid diverticulosis: Status: Acute
[2019-11-20] MEDS: MUCOMYST 20% 200 MG/ML NEB SCH ×3 (00:51→12:59)
[2019-11-20] MEDS: XOPENEX 1.25 MG/3 ML NEBULE NEB SCH ×3 (00:52→12:59)
[2019-11-20 06:46] LABS: BASOPHILS % (AUTO) 0.2 % (0.2-1.0); EOSINOPHILS # (AUTO) 0.1 x10^3/uL (0.0-0.2); HEMATOCRIT 38.2 % (42.0-54.0); LYMPHOCYTES # (AUTO) 0.8 X10^3/uL (1.3-2.9); LYMPHOCYTES % (AUTO) 7.7 % (21.0-51.0); MEAN CORPUSCULAR HEMOGLOBIN 33.8 pg (27.0-34.0); MEAN CORPUSCULAR VOLUME 99.2 fL (80.0-100.0); MEAN PLATELET VOLUME 7.3 fL (7.4-11.0); MONOCYTES # (AUTO) 1.1 x10^3/uL (0.3-0.8); MONOCYTES % (AUTO) 9.9 % (0.0-13.0); NEUTROPHILS # (AUTO) 8.8 x10^3/uL (2.2-4.8); NEUTROPHILS % (AUTO) 81.2 % (42.0-75.0); PLATELET COUNT 192 X10^3/uL (150.0-450.0); RED BLOOD COUNT 3.85 X10^6/uL (4.7-6.0); RED CELL DISTRIBUTION WIDTH 13.9 % (11.6-16.5); WHITE BLOOD COUNT 10.9 X10^3/uL (3.6-10.0)
[2019-11-20 07:02] LABS: BLOOD UREA NITROGEN 9 mg/dL (7-18); CALCIUM 8.5 mg/dL (8.5-10.1); CARBON DIOXIDE 24.5 mmol/L (21-32); CHLORIDE 105 mmol/L (98-107); CREATININE 0.89 mg/dL (0.70-1.30); SODIUM 139 mmol/L (136-145); eGFR NON BLACK RACES > 60 (>60)
[2019-11-20] MEDS ORDERED: K-RIDER 10 MEQ/NS 100 ML 10 MEQ/100 ML BAG IV PRN (07:05)
[2019-11-20] MEDS ORDERED: K-DUR TAB 20 MEQ PO PRN (07:05)
[2019-11-20] MEDS ORDERED: POTASSIUM CHLORIDE LIQ 20 MEQ UDC PO PRN (07:05)
[2019-11-20] MEDS ORDERED: MAGNESIUM SULFATE 1 GRAM/100 mL PREMIX 1 GM/100 ML BAG IV PRN (07:05)
[2019-11-20] MEDS ORDERED: POTASSIUM CHL 60 MEQ/NS 0.45% 500 ML IV PRN (07:05)
[2019-11-20] MEDS ORDERED: KLOR-CON PO PRN (07:05)
[2019-11-20] MEDS ORDERED: MICRO K EXTEN CAP 10 MEQ PO PRN (07:05)
[2019-11-20] MEDS ORDERED: POTASSIUM CHL 40 MEQ/NS 0.45% 500 ML IV PRN (07:05)
--- NOTE | 2019-11-20 08:20 | PCM.PROG ---
Progress Note Progress Note for Day of Date of Exam: 11/20/19 Subjective Subjective: Patient seen at bedside, no acute events overnight. He is scheduled for laparoscopy around 9 am. NPO since midnight. He denies any complaints, cough has loosened up with mucomyst. Labs reviewed, replace K. Tumor markers still pending. Will follow up after liver biopsy. Follow up surgery recommendations. Blood cultures from admission growing micrococcus which is likely a skin contaminant, will get final cultures today. Repeat cultures have been negative. Past Medical Family Social History Past Med/Fam/Surg Hx: No changes since H&P Allergies: Allergies No Known Drug Allergies Allergy (Verified 11/15/19 17:58) Review of Systems ROS: No change since H&P Vital Signs and I&O's Vital Signs: Temperature 100.2 F Pulse Rate [Apical] 85 Pulse Rate 101 Respiratory Rate 30 Blood Pressure [Right Arm] 121/59 Blood Pressure 146/68 O2 Sat by Pulse Oximetry 92 Intake and Output: Intake & Output 11/17/19 11/18/19 11/19/19 11/20/19 23:59 23:59 23:59 23:59 Intake Total 3270 / 3270 1509 / 1509 1559 / 1559 0 / 0 Output Total 550 / 550 925 / 925 350 / 350 600 / 600 Balance 2720 / 2720 584 / 584 1209 / 1209 -600 / -600 Physical Exam Oriented: Normal Ear: Normal Nose: Normal Respiratory: Wheezes and Rales Cardiovascular: Normal Auscultation: Bowel Sounds: Normal Tenderness: Normal Skin: Normal Musculoskeletal: Normal Psychiatric: Normal Mood Description: Calm Affect: Normal Speech Pattern: Clear and Appropriate Laboratory and Diagnostics Result Diagrams: 11/20/19 04:02 11/20/19 04:02 Labs: 11/15/19 18:11 Blood Blood Culture - Preliminary 11/15/19 18:24 Blood Blood Culture - Preliminary 11/17/19 09:06 Stool Stool Culture - Final 11/17/19 09:06 Stool - Final 11/17/19 08:40 Blood Blood Culture - Preliminary 11/17/19 08:37 Blood Blood Culture - Preliminary 11/16/19 12:40 Sputum - Expectorated Sputum Sputum Culture - Final 11/16/19 12:40 Sputum - Expectorated Sputum - Final 11/15/19 17:55 Sputum - Expectorated Sputum Sputum Culture - Final 11/15/19 17:55 Sputum - Expectorated Sputum - Final 11/16/19 15:10 Urine,Clean Catch Urine Culture - Final Laboratory WBC 10.9 X10^3/uL (3.6-10.0) H 11/20/19 04:02 RBC 3.85 X10^6/uL (4.7-6.0) L 11/20/19 04:02 Hgb 13.0 g/dL (13.5-18.0) L 11/20/19 04:02 Hct 38.2 % (42.0-54.0) L 11/20/19 04:02 MCV 99.2 fL (80.0-100.0) 11/20/19 04:02 MCH 33.8 pg (27.0-34.0) 11/20/19 04:02 MCHC 34.0 g/dL (33.0-35.0) 11/20/19 04:02 RDW 13.9 % (11.6-16.5) 11/20/19 04:02 Plt Count 192 X10^3/uL (150.0-450.0) 11/20/19 04:02 MPV 7.3 fL (7.4-11.0) L 11/20/19 04:02 Neut % (Auto) 81.2 % (42.0-75.0) H 11/20/19 04:02 Lymph % (Auto) 7.7 % (21.0-51.0) L 11/20/19 04:02 [place] % (Auto) 9.9 % (0.0-13.0) 11/20/19 04:02 Eos % (Auto) 1.0 % (0.9-2.9) 11/20/19 04:02 Baso % (Auto) 0.2 % (0.2-1.0) 11/20/19 04:02 Neut # (Auto) 8.8 x10^3/uL (2.2-4.8) H 11/20/19 04:02 Lymph # (Auto) 0.8 X10^3/uL (1.3-2.9) L 11/20/19 04:02 [place] # (Auto) 1.1 x10^3/uL (0.3-0.8) H 11/20/19 04:02 Eos # (Auto) 0.1 x10^3/uL (0.0-0.2) 11/20/19 04:02 Baso # (Auto) 0.0 X10^3/uL (0.0-0.1) 11/20/19 04:02 Absolute Nucleated RBC 0.0 /100WBC 11/20/19 04:02 Sodium 139 mmol/L (136-145) 11/20/19 04:02 Corrected Sodium TNP 11/20/19 04:02 Potassium 3.4 mmol/L (3.5-5.1) L 11/20/19 04:02 Chloride 105 mmol/L (98-107) 11/20/19 04:02 Carbon Dioxide 24.5 mmol/L (21-32) 11/20/19 04:02 BUN 9 mg/dL (7-18) 11/20/19 04:02 Creatinine 0.89 mg/dL (0.70-1.30) 11/20/19 04:02 Est GFR (MDRD) Af Amer > 60 (>60) 11/20/19 04:02 Est GFR (MDRD) Non-Af > 60 (>60) 11/20/19 04:02 Glucose 75 mg/dL (65-99) 11/20/19 04:02 Lactic Acid 1.2 mmol/L (0.4-2.0) 11/15/19 21:00 Calcium 8.5 mg/dL (8.5-10.1) 11/20/19 04:02 Corrected Calcium 9.7 mg/dL (8.5-10.1) 11/16/19 04:10 Magnesium 1.8 mg/dL (1.7-2.9) 11/20/19 04:02 Total Bilirubin 0.90 mg/dL (0.2-1.0) 11/18/19 04:29 Direct Bilirubin 0.30 mg/dL (0-0.2) H 11/18/19 04:29 Indirect Bilirubin 0.60 mg/dL (0.2-0.8) 11/18/19 04:29 AST 20 Units/L (15-37) 11/18/19 04:29 ALT 27 Units/L (12-78) 11/18/19 04:29 Alkaline Phosphatase 74 Units/L (46-116) 11/18/19 04:29 Total Protein 5.3 g/dL (6.4-8.2) L 11/18/19 04:29 Albumin 2.4 g/dL (3.4-5.0) L 11/18/19 04:29 Globulin 2.9 g/dL (2.5-4.5) 11/18/19 04:29 Albumin/Globulin Ratio 0.8 Ratio (1.1-2.1) L 11/18/19 04:29 Specimen Type Clean catch urine 11/15/19 17:25 Urine Color Tyra (YELLOW) 11/15/19 17:25 Urine Appearance Clear (CLEAR) 11/15/19 17:25 Urine pH 7.0 (5.0 - 8.0) 11/15/19 17:25 Ur Specific [place] 1.015 (1.000-1.030) 11/15/19 17:25 Urine Protein 2+ (NEGATIVE) 11/15/19 17:25 Urine Glucose (UA) Negative (NEGATIVE) 11/15/19 17:25 Urine Ketones 2+ (NEGATIVE) 11/15/19 17:25 Urine Occult Blood 1+ (NEGATIVE) 11/15/19 17:25 Urine Nitrite Negative (NEGATIVE) 11/15/19 17:25 Urine Bilirubin 1+ (NEGATIVE) 11/15/19 17:25 Urine Urobilinogen Normal (NORMAL) 11/15/19 17:25 Ur Leukocyte Esterase 1+ (NEGATIVE) 11/15/19 17:25 Urine RBC 3-5 /HPF (0-3) A 11/15/19 17:25 Urine WBC 3-5 /HPF (0-5) 11/15/19 17:25 Ur Squamous Epith Cells Few /HPF (NEGATIVE) 11/15/19 17:25 Urine Bacteria Negative /HPF (NEGATIVE) 11/15/19 17:25 Hyaline Casts Rare /LPF (NEGATIVE) 11/15/19 17:25 Ur Culture Indicated? No/not indicated 11/15/19 17:25 Stool Description 75g black loose 11/17/19 09:06 Stl Occult Blood (IFOB) Positive (NEGATIVE) A 11/17/19 09:06 Stool for White Cells Positive (NEGATIVE) A 11/17/19 09:06 Stl C. diff Tox B Gene Negative (NEGATIVE) 11/17/19 09:06 Stl C. diff [id number] Negative (NEGATIVE) 11/17/19 09:06 Vancomycin Trough 8.6 ug/mL (15-20) L 11/18/19 09:09 Influenza Type A (PCR) Negative (NEGATIVE) 11/15/19 18:54 Influenza Type B (PCR) Negative (NEGATIVE) 11/15/19 18:54 Tissue Pathology To follow 11/19/19 08:08 Plan (1) Hypotension: Status: Acute Qualifiers: Hypotension type: orthostatic hypotension Qualified Code(s): I95.1 - Orthostatic hypotension Plan: Resolved (2) Bronchitis, acute: Status: Acute Qualifiers: Bronchitis organism: other organism Qualified Code(s): J20.8 - Acute bronchitis due to other specified organisms Plan: CXR negative for infection (3) SIRS (systemic inflammatory response syndrome): Status: Acute Plan: (4) CAD (coronary artery disease): Status: Acute Qualifiers: Associated angina: without angina Coronary Disease-Associated Artery/Lesion type: [place] artery [place] vs. transplanted heart: [place] heart Qualified Code(s): I25.10 - Atherosclerotic heart disease of [place] coronary artery without angina pectoris Plan: Asa and Plavix on hold due to procedure (5) Pancreatic mass: Status: Acute (6) Liver metastases: Status: Acute (7) Hypokalemia: Status: Acute (8) Sigmoid diverticulosis: Status: Acute (9) Blood in stool: Status: Acute
[2019-11-20] MEDS ORDERED: LTA KIT LIDOCAINE 4% ONE (08:42)
[2019-11-20] MEDS ORDERED: QUELICIN (OR ANECTINE) ONE (08:42)
[2019-11-20] MEDS ORDERED: ZOFRAN INJ 4 MG VIAL ONE (08:42)
[2019-11-20] MEDS ORDERED: VERSED ONE (08:42)
[2019-11-20] MEDS ORDERED: EPHEDRINE SULFATE INJ ONE (08:42)
[2019-11-20] MEDS ORDERED: XYLOCAINE 2 % (PLAIN) ONE (08:42)
[2019-11-20] MEDS ORDERED: ROBINUL ONE (08:42)
[2019-11-20] MEDS ORDERED: SUPRANE ONE (08:42)
[2019-11-20] MEDS ORDERED: DIPRIVAN VIAL ONE (08:42)
[2019-11-20] MEDS ORDERED: NORCURON INJ 10 MG VIAL ONE (08:42)
[2019-11-20] MEDS: PULMICORT NEB TX 0.5 MG NEB SCH (08:59)
[2019-11-20] MEDS ORDERED: FENTANYL INJ 250 mcg ONE (09:03)
[2019-11-20] MEDS ORDERED: LR 1000 ML IV 1,000 ML IV ONE (09:29)
[2019-11-20] MEDS ORDERED: BACTROBAN TOPICAL OINT ONE (10:29)
[2019-11-20] MEDS ORDERED: REGLAN INJ 10 MG VIAL IVP PRN (10:45)
[2019-11-20] MEDS ORDERED: DILAUDID INJ IVP PRN (10:45)
[2019-11-20] MEDS ORDERED: ZOFRAN INJ 4 MG VIAL IVP PRN (10:45)
[2019-11-20] MEDS ORDERED: PHENERGAN INJ 25 MG IM PRN (10:45)
[2019-11-20] MEDS ORDERED: BENADRYL INJ 50 MG VIAL IVP PRN (10:45)
[2019-11-20] MEDS: MYLICON TAB 80 MG CHEW PO SCH (11:27)
[2019-11-20] MEDS: FLONASE NASAL SPRAY ENOSTRIL SCH (11:27)
[2019-11-20] MEDS: COZAAR PO SCH (11:27)
[2019-11-20] MEDS: FERROUS GLUCONATE PO SCH (11:27)
[2019-11-20] MEDS: FLOMAX PO SCH (11:27)
[2019-11-20] MEDS: PROTONIX TAB 40 MG PO SCH (11:28)
[2019-11-20] MEDS: ZyrTEC TAB 10 MG PO SCH (11:28)
--- NOTE | 2019-11-20 13:46 | W.DIS.FURT ---
Summary of Discharge Discharge Summary of Date Date of Exam: 11/20/19 Admission Date Date of Admission: 11/15/19 Admission Diagnosis Hospital Course: Mr. John is a 74y/o male with a PMH of CAD s/p PCI, HTN presented with cough, fever, chills and weakness. Patient states he was feeling dizzy for the past few days with decreased appetite and poor oral intake. He started shaking a lot yesterday so was brought in by his family. He reports mostly non-productive cough. He denies N/V or diarrhea. He reports bloating in the stomach. He was noted to be hypotensive on admission requiring IV fluids. ED work up included CXR which was negative for acute process. Lactate was elevated at 3.3. He was started on IV antibiotics and cultures were collected. Blood cultures on admisson came back positive, abx coverage was broaded with Vancomycin and Zosyn. Patient was also having intermittent diarrhea, stool studies were checked and were negative for infection but did show blood. CTAP was done which was concerning for pancreatic mass and liver metastasis. Tumor markers were ordered and Dr. Hines was consulted. Patient had a colonoscopy which showed some colitis in the sigmoid, no polyps or mass concerning for neoplasm. Patient also underwent biopsy of the liver lesion. All blood culture sets including the one from ED and repeat were negative. Abx were stopped. Patient was evaluated by PT and Rt. He did require oxygen for home. Patient was stable for discharge and will follow up with PCP and Dr. Hines in 1 week. Vital Signs: Vital Signs (72 hours) 11/17/19 13:47 11/17/19 14:00 11/17/19 15:00 Temperature Pulse Rate Pulse Rate [Apical] 97 H 102 H Respiratory Rate 18 20 20 Blood Pressure Blood Pressure [Right Arm] 132/63 132/60 O2 Sat by Pulse Oximetry 99 98 11/17/19 16:00 11/17/19 16:13 11/17/19 17:00 Temperature 99.0 F Pulse Rate Pulse Rate [Apical] 88 83 Respiratory Rate 18 20 22 Blood Pressure Blood Pressure [Right Arm] 130/58 129/58 O2 Sat by Pulse Oximetry 100 99 11/17/19 17:13 11/17/19 18:00 11/17/19 19:00 Temperature 98.9 F Pulse Rate 80 Pulse Rate [Apical] 85 Respiratory Rate 20 20 32 H Blood Pressure 130/60 Blood Pressure [Right Arm] 121/59 O2 Sat by Pulse Oximetry 100 100 11/17/19 19:30 11/17/19 20:00 11/17/19 20:30 Temperature Pulse Rate 81 79 83 Pulse Rate [Apical] Respiratory Rate 37 H 33 H 33 H Blood Pressure 121/58 129/60 136/62 Blood Pressure [Right Arm] O2 Sat by Pulse Oximetry 100 99 98 11/17/19 21:00 11/17/19 21:30 11/17/19 22:00 Temperature Pulse Rate 78 74 90 Pulse Rate [Apical] Respiratory Rate 34 H 25 H 41 H Blood Pressure 130/63 128/60 118/62 Blood Pressure [Right Arm] O2 Sat by Pulse Oximetry 95 92 L 97 11/17/19 22:30 11/17/19 23:00 11/17/19 23:30 Temperature 98.6 F Pulse Rate 97 H 86 82 Pulse Rate [Apical] Respiratory Rate 40 H 38 H 36 H Blood Pressure 124/59 122/58 127/60 Blood Pressure [Right Arm] O2 Sat by Pulse Oximetry 96 95 95 11/18/19 00:00 11/18/19 00:30 11/18/19 01:02 Temperature Pulse Rate 76 84 82 Pulse Rate [Apical] Respiratory Rate 31 H 39 H 39 H Blood Pressure 111/56 129/60 121/60 Blood Pressure [Right Arm] O2 Sat by Pulse Oximetry 100 93 L 93 L 11/18/19 02:00 11/18/19 03:00 11/18/19 04:00 Temperature 98.6 F Pulse Rate 75 80 81 Pulse Rate [Apical] Respiratory Rate 28 H 36 H 36 H Blood Pressure 145/63 132/63 141/63 Blood Pressure [Right Arm] O2 Sat by Pulse Oximetry 89 L 90 L 90 L 11/18/19 05:00 11/18/19 06:00 11/18/19 06:15 Temperature Pulse Rate 86 87 95 H Pulse Rate [Apical] Respiratory Rate 43 H 44 H 46 H Blood Pressure 143/65 134/60 Blood Pressure [Right Arm] O2 Sat by Pulse Oximetry 94 L 98 97 11/18/19 06:30 11/18/19 06:45 11/18/19 07:00 Temperature Pulse Rate 92 H 88 87 Pulse Rate [Apical] Respiratory Rate 40 H 43 H 42 H Blood Pressure 139/64 Blood Pressure [Right Arm] O2 Sat by Pulse Oximetry 99 100 100 11/18/19 07:15 11/18/19 07:30 11/18/19 07:45 Temperature Pulse Rate 90 80 84 Pulse Rate [Apical] Respiratory Rate 53 H 39 H 40 H Blood Pressure Blood Pressure [Right Arm] O2 Sat by Pulse Oximetry 100 100 100 11/18/19 08:00 11/18/19 08:01 11/18/19 08:15 Temperature 99.6 F Pulse Rate 95 H 95 H 82 Pulse Rate [Apical] Respiratory Rate 39 H 41 H 49 H Blood Pressure 143/66 Blood Pressure [Right Arm] O2 Sat by Pulse Oximetry 97 99 100 11/18/19 08:17 11/18/19 08:30 11/18/19 08:45 Temperature Pulse Rate 81 85 90 Pulse Rate [Apical] Respiratory Rate 44 H 43 H Blood Pressure Blood Pressure [Right Arm] O2 Sat by Pulse Oximetry 100 100 100 11/18/19 09:05 11/18/19 09:15 11/18/19 09:30 Temperature Pulse Rate 92 H 86 87 Pulse Rate [Apical] Respiratory Rate 30 H 41 H 41 H Blood Pressure Blood Pressure [Right Arm] O2 Sat by Pulse Oximetry 97 99 100 11/18/19 09:45 11/18/19 10:00 11/18/19 10:17 Temperature Pulse Rate 82 82 83 Pulse Rate [Apical] Respiratory Rate 40 H 41 H Blood Pressure 142/66 Blood Pressure [Right Arm] O2 Sat by Pulse Oximetry 98 98 11/18/19 10:30 11/18/19 10:45 11/18/19 11:00 Temperature Pulse Rate 85 86 89 Pulse Rate [Apical] Respiratory Rate 38 H 46 H 37 H Blood Pressure 128/61 Blood Pressure [Right Arm] O2 Sat by Pulse Oximetry 100 99 98 11/18/19 11:15 11/18/19 11:30 11/18/19 11:45 Temperature Pulse Rate 84 81 80 Pulse Rate [Apical] Respiratory Rate 49 H 38 H 38 H Blood Pressure Blood Pressure [Right Arm] O2 Sat by Pulse Oximetry 97 97 95 11/18/19 12:00 11/18/19 12:01 11/18/19 12:09 Temperature 100.5 F H Pulse Rate 94 H 96 H Pulse Rate [Apical] Respiratory Rate 43 H 32 H Blood Pressure 139/91 Blood Pressure [Right Arm] O2 Sat by Pulse Oximetry 97 96 11/18/19 12:15 11/18/19 12:30 11/18/19 12:45 Temperature Pulse Rate 85 81 82 Pulse Rate [Apical] Respiratory Rate 36 H 43 H 44 H Blood Pressure Blood Pressure [Right Arm] O2 Sat by Pulse Oximetry 100 98 100 11/18/19 13:00 11/18/19 13:09 11/18/19 13:15 Temperature Pulse Rate 80 79 Pulse Rate [Apical] Respiratory Rate 40 H 40 H 36 H Blood Pressure 134/62 Blood Pressure [Right Arm] O2 Sat by Pulse Oximetry 96 11/18/19 13:30 11/18/19 13:45 11/18/19 14:00 Temperature 98.3 F Pulse Rate 81 89 93 H Pulse Rate [Apical] Respiratory Rate 38 H 39 H 44 H Blood Pressure 132/60 Blood Pressure [Right Arm] O2 Sat by Pulse Oximetry 98 98 11/18/19 14:15 11/18/19 14:30 11/18/19 14:45 Temperature Pulse Rate 85 85 80 Pulse Rate [Apical] Respiratory Rate 36 H 37 H Blood Pressure Blood Pressure [Right Arm] O2 Sat by Pulse Oximetry 100 100 100 11/18/19 15:00 11/18/19 15:15 11/18/19 15:38 Temperature Pulse Rate 80 77 78 Pulse Rate [Apical] Respiratory Rate 35 H 34 H 41 H Blood Pressure 131/62 Blood Pressure [Right Arm] O2 Sat by Pulse Oximetry 100 100 11/18/19 15:45 11/18/19 16:00 11/18/19 16:01 Temperature 99.3 F Pulse Rate 73 93 H 86 Pulse Rate [Apical] Respiratory Rate 34 H 37 H 40 H Blood Pressure 126/58 Blood Pressure [Right Arm] O2 Sat by Pulse Oximetry 100 98 100 11/18/19 16:15 11/18/19 16:30 11/18/19 17:01 Temperature Pulse Rate 75 72 74 Pulse Rate [Apical] Respiratory Rate 39 H 35 H 39 H Blood Pressure Blood Pressure [Right Arm] O2 Sat by Pulse Oximetry 100 99 11/18/19 17:05 11/18/19 17:15 11/18/19 17:30 Temperature Pulse Rate 75 88 76 Pulse Rate [Apical] Respiratory Rate 41 H 48 H 40 H Blood Pressure 160/73 Blood Pressure [Right Arm] O2 Sat by Pulse Oximetry 99 95 11/18/19 17:45 11/18/19 18:00 11/18/19 18:15 Temperature Pulse Rate 73 73 78 Pulse Rate [Apical] Respiratory Rate 41 H 39 H 35 H Blood Pressure Blood Pressure [Right Arm] O2 Sat by Pulse Oximetry 95 96 95 11/18/19 20:20 11/18/19 21:23 11/18/19 21:24 Temperature Pulse Rate 82 95 H 93 H Pulse Rate [Apical] Respiratory Rate Blood Pressure 169/74 Blood Pressure [Right Arm] O2 Sat by Pulse Oximetry 92 L 96 98 11/18/19 22:00 11/18/19 23:03 11/18/19 23:05 Temperature Pulse Rate 89 92 H 97 H Pulse Rate [Apical] Respiratory Rate Blood Pressure 156/68 161/73 Blood Pressure [Right Arm] O2 Sat by Pulse Oximetry 96 100 100 11/19/19 00:00 11/19/19 01:07 11/19/19 01:11 Temperature Pulse Rate 92 H 90 Pulse Rate [Apical] Respiratory Rate 45 H 41 H Blood Pressure 159/71 154/68 Blood Pressure [Right Arm] O2 Sat by Pulse Oximetry 100 11/19/19 02:00 11/19/19 03:00 11/19/19 04:00 Temperature 98.9 F Pulse Rate 85 80 83 Pulse Rate [Apical] Respiratory Rate 38 H 37 H 41 H Blood Pressure 139/65 154/67 130/65 Blood Pressure [Right Arm] O2 Sat by Pulse Oximetry 100 100 100 11/19/19 05:00 11/19/19 05:23 11/19/19 06:00 Temperature Pulse Rate 80 80 Pulse Rate [Apical] Respiratory Rate 40 H 32 H 30 H Blood Pressure 138/62 136/61 Blood Pressure [Right Arm] O2 Sat by Pulse Oximetry 93 L 95 11/19/19 06:15 11/19/19 06:23 11/19/19 06:30 Temperature Pulse Rate 81 84 Pulse Rate [Apical] Respiratory Rate 32 H 31 H 32 H Blood Pressure Blood Pressure [Right Arm] O2 Sat by Pulse Oximetry 93 L 96 11/19/19 06:45 11/19/19 07:00 11/19/19 07:15 Temperature Pulse Rate 82 79 79 Pulse Rate [Apical] Respiratory Rate 35 H 31 H 32 H Blood Pressure 139/63 Blood Pressure [Right Arm] O2 Sat by Pulse Oximetry 98 98 98 11/19/19 07:30 11/19/19 08:24 11/19/19 08:25 Temperature 98.4 F Pulse Rate 77 72 72 Pulse Rate [Apical] Respiratory Rate 33 H Blood Pressure 125/60 Blood Pressure [Right Arm] O2 Sat by Pulse Oximetry 99 98 99 11/19/19 08:30 11/19/19 08:45 11/19/19 09:00 Temperature Pulse Rate 78 68 79 Pulse Rate [Apical] Respiratory Rate 34 H 31 H Blood Pressure 141/64 136/58 Blood Pressure [Right Arm] O2 Sat by Pulse Oximetry 98 100 99 11/19/19 09:15 11/19/19 09:30 11/19/19 09:45 Temperature Pulse Rate 74 77 80 Pulse Rate [Apical] Respiratory Rate 30 H 35 H 35 H Blood Pressure 141/65 130/61 134/63 Blood Pressure [Right Arm] O2 Sat by Pulse Oximetry 98 99 100 11/19/19 10:00 11/19/19 10:15 11/19/19 10:30 Temperature Pulse Rate 74 74 75 Pulse Rate [Apical] Respiratory Rate 30 H 32 H 37 H Blood Pressure 138/60 141/66 139/64 Blood Pressure [Right Arm] O2 Sat by Pulse Oximetry 100 100 100 11/19/19 10:45 11/19/19 11:00 11/19/19 11:28 Temperature Pulse Rate 76 76 71 Pulse Rate [Apical] Respiratory Rate 33 H 36 H Blood Pressure 128/62 149/67 Blood Pressure [Right Arm] O2 Sat by Pulse Oximetry 98 100 95 11/19/19 11:30 11/19/19 11:32 11/19/19 11:45 Temperature Pulse Rate 72 72 75 Pulse Rate [Apical] Respiratory Rate 37 H 37 H 37 H Blood Pressure 161/74 Blood Pressure [Right Arm] O2 Sat by Pulse Oximetry 96 96 94 L 11/19/19 12:00 11/19/19 12:15 11/19/19 12:30 Temperature 99.1 F Pulse Rate 75 75 77 Pulse Rate [Apical] Respiratory Rate 40 H 41 H 46 H Blood Pressure 152/69 Blood Pressure [Right Arm] O2 Sat by Pulse Oximetry 96 96 95 11/19/19 12:45 11/19/19 13:00 11/19/19 13:15 Temperature Pulse Rate 85 81 82 Pulse Rate [Apical] Respiratory Rate 45 H 43 H 45 H Blood Pressure 158/74 Blood Pressure [Right Arm] O2 Sat by Pulse Oximetry 96 95 97 11/19/19 13:30 11/19/19 13:33 11/19/19 13:45 Temperature Pulse Rate 88 98 H 90 Pulse Rate [Apical] Respiratory Rate 36 H 50 H 44 H Blood Pressure 138/64 Blood Pressure [Right Arm] O2 Sat by Pulse Oximetry 95 93 L 93 L 11/19/19 14:00 11/19/19 14:15 11/19/19 14:30 Temperature Pulse Rate 87 85 83 Pulse Rate [Apical] Respiratory Rate 36 H 43 H 44 H Blood Pressure 152/67 Blood Pressure [Right Arm] O2 Sat by Pulse Oximetry 94 L 94 L 94 L 11/19/19 14:45 11/19/19 15:00 11/19/19 15:15 Temperature Pulse Rate 87 81 79 Pulse Rate [Apical] Respiratory Rate 46 H 38 H 38 H Blood Pressure 141/65 Blood Pressure [Right Arm] O2 Sat by Pulse Oximetry 94 L 91 L 94 L 11/19/19 15:30 11/19/19 15:45 11/19/19 16:03 Temperature 98.8 F Pulse Rate 73 81 89 Pulse Rate [Apical] Respiratory Rate 37 H 36 H 49 H Blood Pressure 153/72 Blood Pressure [Right Arm] O2 Sat by Pulse Oximetry 96 94 L 92 L 11/19/19 16:15 11/19/19 16:30 11/19/19 16:45 Temperature Pulse Rate 87 87 87 Pulse Rate [Apical] Respiratory Rate 47 H 38 H 36 H Blood Pressure Blood Pressure [Right Arm] O2 Sat by Pulse Oximetry 89 L 91 L 89 L 11/19/19 17:00 11/19/19 17:15 11/19/19 17:30 Temperature Pulse Rate 93 H 94 H 93 H Pulse Rate [Apical] Respiratory Rate 34 H 35 H 36 H Blood Pressure 133/61 Blood Pressure [Right Arm] O2 Sat by Pulse Oximetry 91 L 88 L 90 L 11/19/19 17:45 11/19/19 18:00 11/19/19 19:00 Temperature Pulse Rate 94 H 95 H 90 Pulse Rate [Apical] Respiratory Rate 33 H 45 H 37 H Blood Pressure 139/65 141/65 Blood Pressure [Right Arm] O2 Sat by Pulse Oximetry 90 L 90 L 91 L 11/19/19 20:00 11/19/19 20:02 11/19/19 21:00 Temperature 98.9 F Pulse Rate 84 79 85 Pulse Rate [Apical] Respiratory Rate 30 H 26 H Blood Pressure 140/63 134/62 Blood Pressure [Right Arm] O2 Sat by Pulse Oximetry 90 L 93 L 95 11/19/19 22:00 11/19/19 23:00 11/20/19 00:00 Temperature 98.1 F Pulse Rate 75 69 79 Pulse Rate [Apical] Respiratory Rate 27 H 21 27 H Blood Pressure 137/65 129/63 148/68 Blood Pressure [Right Arm] O2 Sat by Pulse Oximetry 93 L 91 L 94 L 11/20/19 01:00 11/20/19 02:00 11/20/19 03:00 Temperature Pulse Rate 78 71 87 Pulse Rate [Apical] Respiratory Rate 28 H 29 H 43 H Blood Pressure 154/71 114/53 164/74 Blood Pressure [Right Arm] O2 Sat by Pulse Oximetry 100 94 L 96 11/20/19 04:00 11/20/19 05:00 11/20/19 06:00 Temperature 100.2 F H Pulse Rate 82 82 101 H Pulse Rate [Apical] Respiratory Rate 38 H 28 H 30 H Blood Pressure 164/72 145/64 146/68 Blood Pressure [Right Arm] O2 Sat by Pulse Oximetry 94 L 94 L 92 L 11/20/19 07:00 11/20/19 08:00 11/20/19 08:59 Temperature 99.1 F Pulse Rate 82 91 H 85 Pulse Rate [Apical] Respiratory Rate 36 H 33 H Blood Pressure 162/68 146/67 Blood Pressure [Right Arm] O2 Sat by Pulse Oximetry 91 L 90 L 91 L 11/20/19 09:00 11/20/19 09:52 11/20/19 10:37 Temperature 98.5 F Pulse Rate 84 104 H 100 H Pulse Rate [Apical] Respiratory Rate 33 H 20 20 Blood Pressure 148/65 132/60 137/63 Blood Pressure [Right Arm] O2 Sat by Pulse Oximetry 91 L 98 98 11/20/19 10:42 11/20/19 10:47 11/20/19 10:58 Temperature Pulse Rate 100 H 98 H 102 H Pulse Rate [Apical] Respiratory Rate 20 20 20 Blood Pressure 128/76 137/60 132/60 Blood Pressure [Right Arm] O2 Sat by Pulse Oximetry 98 98 98 11/20/19 11:02 11/20/19 11:06 11/20/19 11:20 Temperature Pulse Rate 101 H 101 H 97 H Pulse Rate [Apical] Respiratory Rate 20 20 Blood Pressure 142/60 140/64 Blood Pressure [Right Arm] O2 Sat by Pulse Oximetry 98 96 92 L 11/20/19 11:25 11/20/19 11:30 11/20/19 11:45 Temperature Pulse Rate 97 H 97 H 96 H Pulse Rate [Apical] Respiratory Rate 35 H 34 H 28 H Blood Pressure 140/64 146/68 146/67 Blood Pressure [Right Arm] O2 Sat by Pulse Oximetry 93 L 92 L 95 11/20/19 12:00 11/20/19 12:15 11/20/19 12:31 Temperature 99.7 F H Pulse Rate 100 H 97 H 105 H Pulse Rate [Apical] Respiratory Rate 35 H 37 H 36 H Blood Pressure 156/74 145/74 145/66 Blood Pressure [Right Arm] O2 Sat by Pulse Oximetry 94 L 92 L 91 L 11/20/19 12:45 11/20/19 13:00 11/20/19 13:30 Temperature Pulse Rate 94 H 96 H 97 H Pulse Rate [Apical] Respiratory Rate 31 H 36 H 33 H Blood Pressure 140/69 134/63 128/64 Blood Pressure [Right Arm] O2 Sat by Pulse Oximetry 92 L 95 94 L Labs: Laboratory Last Values WBC 10.9 X10^3/uL (3.6-10.0) H 11/20/19 04:02 RBC 3.85 X10^6/uL (4.7-6.0) L 11/20/19 04:02 Hgb 13.0 g/dL (13.5-18.0) L 11/20/19 04:02 Hct 38.2 % (42.0-54.0) L 11/20/19 04:02 MCV 99.2 fL (80.0-100.0) 11/20/19 04:02 MCH 33.8 pg (27.0-34.0) 11/20/19 04:02 MCHC 34.0 g/dL (33.0-35.0) 11/20/19 04:02 RDW 13.9 % (11.6-16.5) 11/20/19 04:02 Plt Count 192 X10^3/uL (150.0-450.0) 11/20/19 04:02 MPV 7.3 fL (7.4-11.0) L 11/20/19 04:02 Neut % (Auto) 81.2 % (42.0-75.0) H 11/20/19 04:02 Lymph % (Auto) 7.7 % (21.0-51.0) L 11/20/19 04:02 [place] % (Auto) 9.9 % (0.0-13.0) 11/20/19 04:02 Eos % (Auto) 1.0 % (0.9-2.9) 11/20/19 04:02 Baso % (Auto) 0.2 % (0.2-1.0) 11/20/19 04:02 Neut # (Auto) 8.8 x10^3/uL (2.2-4.8) H 11/20/19 04:02 Lymph # (Auto) 0.8 X10^3/uL (1.3-2.9) L 11/20/19 04:02 [place] # (Auto) 1.1 x10^3/uL (0.3-0.8) H 11/20/19 04:02 Eos # (Auto) 0.1 x10^3/uL (0.0-0.2) 11/20/19 04:02 Baso # (Auto) 0.0 X10^3/uL (0.0-0.1) 11/20/19 04:02 Absolute Nucleated RBC 0.0 /100WBC 11/20/19 04:02 Sodium 139 mmol/L (136-145) 11/20/19 04:02 Corrected Sodium TNP 11/20/19 04:02 Potassium 3.4 mmol/L (3.5-5.1) L 11/20/19 04:02 Chloride 105 mmol/L (98-107) 11/20/19 04:02 Carbon Dioxide 24.5 mmol/L (21-32) 11/20/19 04:02 BUN 9 mg/dL (7-18) 11/20/19 04:02 Creatinine 0.89 mg/dL (0.70-1.30) 11/20/19 04:02 Est GFR (MDRD) Af Amer > 60 (>60) 11/20/19 04:02 Est GFR (MDRD) Non-Af > 60 (>60) 11/20/19 04:02 Glucose 75 mg/dL (65-99) 11/20/19 04:02 Lactic Acid 1.2 mmol/L (0.4-2.0) 11/15/19 21:00 Calcium 8.5 mg/dL (8.5-10.1) 11/20/19 04:02 Corrected Calcium 9.7 mg/dL (8.5-10.1) 11/16/19 04:10 Magnesium 1.8 mg/dL (1.7-2.9) 11/20/19 04:02 Total Bilirubin 0.90 mg/dL (0.2-1.0) 11/18/19 04:29 Direct Bilirubin 0.30 mg/dL (0-0.2) H 11/18/19 04:29 Indirect Bilirubin 0.60 mg/dL (0.2-0.8) 11/18/19 04:29 AST 20 Units/L (15-37) 11/18/19 04:29 ALT 27 Units/L (12-78) 11/18/19 04:29 Alkaline Phosphatase 74 Units/L (46-116) 11/18/19 04:29 Total Protein 5.3 g/dL (6.4-8.2) L 11/18/19 04:29 Albumin 2.4 g/dL (3.4-5.0) L 11/18/19 04:29 Globulin 2.9 g/dL (2.5-4.5) 11/18/19 04:29 Albumin/Globulin Ratio 0.8 Ratio (1.1-2.1) L 11/18/19 04:29 Specimen Type Clean catch urine 11/15/19 17:25 Urine Color Tyra (YELLOW) 11/15/19 17:25 Urine Appearance Clear (CLEAR) 11/15/19 17:25 Urine pH 7.0 (5.0 - 8.0) 11/15/19 17:25 Ur Specific [place] 1.015 (1.000-1.030) 11/15/19 17:25 Urine Protein 2+ (NEGATIVE) 11/15/19 17:25 Urine Glucose (UA) Negative (NEGATIVE) 11/15/19 17:25 Urine Ketones 2+ (NEGATIVE) 11/15/19 17:25 Urine Occult Blood 1+ (NEGATIVE) 11/15/19 17:25 Urine Nitrite Negative (NEGATIVE) 11/15/19 17:25 Urine Bilirubin 1+ (NEGATIVE) 11/15/19 17:25 Urine Urobilinogen Normal (NORMAL) 11/15/19 17:25 Ur Leukocyte Esterase 1+ (NEGATIVE) 11/15/19 17:25 Urine RBC 3-5 /HPF (0-3) A 11/15/19 17:25 Urine WBC 3-5 /HPF (0-5) 11/15/19 17:25 Ur Squamous Epith Cells Few /HPF (NEGATIVE) 11/15/19 17:25 Urine Bacteria Negative /HPF (NEGATIVE) 11/15/19 17:25 Hyaline Casts Rare /LPF (NEGATIVE) 11/15/19 17:25 Ur Culture Indicated? No/not indicated 11/15/19 17:25 Stool Description 75g black loose 11/17/19 09:06 Stl Occult Blood (IFOB) Positive (NEGATIVE) A 11/17/19 09:06 Stool for White Cells Positive (NEGATIVE) A 11/17/19 09:06 Stl C. diff Tox B Gene Negative (NEGATIVE) 11/17/19 09:06 Stl C. diff [id number] Negative (NEGATIVE) 11/17/19 09:06 Vancomycin Trough 8.6 ug/mL (15-20) L 11/18/19 09:09 Influenza Type A (PCR) Negative (NEGATIVE) 11/15/19 18:54 Influenza Type B (PCR) Negative (NEGATIVE) 11/15/19 18:54 Tissue Pathology To follow 11/20/19 10:14 Reason For Visit: SEPSIS; BRONCHITIS R/O PNEUMONIA; NEUTROPENIA; Discharge Date Discharge Date: 11/20/19 Discharge Diagnosis All Active Problems (Updated 11/20/19 @ 08:20 by Aleyda Short) Blood in stool (Acute) Sigmoid diverticulosis (Acute) Hypokalemia (Acute) Liver metastases (Acute) Pancreatic mass (Acute) Hypotension (Acute) HTN (hypertension) (Acute) CAD (coronary artery disease) (Acute) SIRS (systemic inflammatory response syndrome) (Acute) Bronchitis, acute (Acute) Sinus tachycardia (Acute) Neutropenia (Acute) Sepsis (Acute) Plan of Treatment: Continue with present treatment and follow up plan. Pt is to keep follow up appointment as instructed and take medications as ordered. Discharge Medications Discharge Medications: No Known Drug Allergies Allergy (Verified 11/15/19 17:58) CONTINUE taking the following medications aspirin [Aspir-81] 81 mg PO DAILY 11/15/19 [History] clopidogrel 75 mg PO DAILY 11/15/19 [History] esomeprazole magnesium [Nexium] 40 mg PO DAILY 11/15/19 [History] ferrous sulfate [iron] 325 mg PO DAILY 11/15/19 [History] losartan 50 mg PO DAILY 11/15/19 [History] red yeast rice 600 mg PO DAILY 11/15/19 [History] simvastatin 10 mg PO HS 11/15/19 [History] tamsulosin 0.4 mg PO DAILY 11/15/19 [History] New Prescriptions albuterol sulfate 1.25 mg IN QID PRN #75 ml 11/20/19 [Rx] hydrocodone-acetaminophen 1 tab PO Q6H PRN 5 Days #20 tab MDD 4 tablets 11/20/19 [Rx] nebulizers #1 ea 11/20/19 [Rx] Follow up and Referral Follow Up: 1 Week (Dr. HINES ) 1 Week (PCP) Discharge Disposition Discharge Disposition: Home Discharge Condition: Stable
[2019-11-20] MEDS: ROBITUSSIN DM PO PRN (15:05)
[2019-11-20 15:31] VITALS: BP 137/71
== END 2019-11-20 16:15 | disposition home or self-care (01) | DRG 854 ==
LOC: ER 17:44 → ICU 20:08
PROVIDERS: ADMIT Internal Medicine; ATTEND Internal Medicine
PROC: LIVERBX (2019-11-20 08:45)
PROC: DIAGLAP (2019-11-20 08:45)
CPT/HCPCS: 36415; 71010; 71020; 71045; 71046; 74177; 80048; 80053; 80076; 80202; 81001; 82270; 82378; 82565; 83605; 83630; 83735; 85025; 86301; 86316; 87040; 87045; 87070; 87086; 87205; 87427; 87449; 87493; 87502; 87899; 93005; 94640; 96365; 96367; 96374; 96375; 97161; 99100; 99285; A4216; A4217; A4222; J0330; J0696; J1940; J1956; J2250; J2405; J2543; J2704; J3010; J3370; J3475; J3490; J7030; J7050; J7120; J7626

== ENCOUNTER 2023-02-15 12:57 | Observation (INO) ==
[2023-02-15 13:22] LABS: ABG BASE EXCESS 1.2 mmol/L (-2.0-2.0)
--- NOTE | 2023-02-15 13:27 | DR.SOBA ---
HPI Time Seen Time Seen by Provider: 02/15/23 13:15 Primary Care Physician Primary Care Physician: DR VANG Complaints Chief Complaint Doctors Comments: 77 y/o male sent in for evaluation. Home health nurse found the pt to have a low pulse ox today. Pt reports he has been having exertional dyspnea for the past month. Fine at rest, but becomes very s hort of breath with minimal exertion. + h/o CAD, s/p 5 stents. Denies chest pain, h/o CHF, h/o CA. No fever. Has a cough, productive of some white sputum. Denies chest pain, bowel or bladder issues. No edema. Has had decreased appetite, 5 lb weight lost over past month. Chief Complaint:: PT C/O ONE MONTH HISTORY OF EXERTIONAL SHORTNESS OF BREATH ASSOCIATED WITH PRODUCTIVE COUGH. DENIES ANY FEVER OR PAIN. COVID-19 Coronavirus risk:travel/contact w/high risk person: No Has patient experienced Coronavirus symptoms: No Reviewed Nurses Notes Reviewed: Yes Source History Provided: Patient Mode of Arrival Mode of Arrival: Ambulatory Timing Onset of Chief Complaint: 02/15/23 PMH PMH Past Medical History: Yes Past Medical History: Coronary Artery Disease, Dyslipidemia, Hypertension and Sleep Apnea Past Medical History Comment: BPH Past Surgical History: Yes Surgical History: Angioplasty/Stents Past Surgical History Comment: UMBILICAL HERNIA REPAIR Family History History of Family Medical Conditions: Yes Family Medical History: Diabetes Mellitus and Cancer Family Medical History Comment: ESRD Social History Does patient currently use any type of tobacco product: No Have you used tobacco products in the last 12 months: No Type of Tobacco Use: None Does any household member use tobacco: No Alcohol Use: None Do you use any recreational Drugs:: No Lives With: Spouse Lives Where: Home Travel Risk Coronavirus risk:travel/contact w/high risk person: No Has patient experienced Coronavirus symptoms: No Infectious screening In the last 2 months have you had wt loss of >10#?: NO Have you had fever, night sweats or hemotysis?: No Have you traveled outside the country in the last 6 months?: No Isolation: Standard ROS Review of Systems Constitutional: Weakness and Loss of Appetite Eyes: No Symptoms Reported ENTM: No Symptoms Reported Respiratoy: Productive Cough and Short of Breath Cardiovascular: No Symptoms Reported Gastrointestinal/Abdominal: No Symptoms Reported Genitourinary: No Symptoms Reported Neurological: Weakness Musculoskeletal: No Symptoms Reported Integumentary: No Symptoms Reported Hematologic/Lymphatic: No Symptoms Reported All Other Systems: Reviewed and Negative PE Vital Signs Vitals: Temperature 98.9 F Pulse Rate 75 Pulse Rate 101 Respiratory Rate 41 Respiratory Rate 24 Blood Pressure [Right Arm] 121/59 Blood Pressure 138/65 Blood Pressure 146/64 O2 Sat by Pulse Oximetry 97 O2 Sat by Pulse Oximetry 86 General General Appearance: Alert, In No Apparent Distress (at rest) and Other (+ dyspnea going from traige chiar to wheelchair.) Eyes Eye exam: PERRL and EOMI ENT ENT Exam: Normal Oropharynx and Mucous Membranes Moist Neck Neck Exam: Normal Inspection and Other (No JVD); negative Tenderness Respiratory Respiratory Exam: Other (+ bibasilar rales); negative Accessory Muscle Use or Re spiratory Distress Cardiovascular Cardiovascular Exam: Regular Rate, Normal Rhythm and Normal Heart Sounds Abdominal Exam Abdominal Exam: Normal Bowel Sounds and Soft; negative Tenderness or Organomegal y Extremities Extremities Exam: Normal Inspection; negative Edema Back Back Exam: Normal Inspection Neurologic Neurological Exam: Alert, Oriented X3 and CN II-XII Intact; negative Motor Sensory Deficit Skin Skin Exam: Warm and Dry COURSE Treatment Treatment: 77 y/o male with exertional dyspnea over the past month, with loss of appetite, weight loss. W/u initiated. ABG on RA - + low pO2. CXR - + increased irregular haziness of the left upper lateral lung field, not c/w consolidated pneumonia. Needs CTA of the lung for better evaluation of his lungs. CT currently down for several hours (maintenancde). Also recommend ECHO for evaluation of his EF. Pt reportedly had an abnormal CT of the abd 2020, with possible liver mets. Had a liver biopsy then, no abnormalities. Liver should be visualized on the CTA chest. Discussed with Dr Vang, will admit for observation. Given IV Rocephin for prophylactic coverage of possible pneumonia. ROR Labs Reviewed Laboratory Results Reviewed?: Yes Result Diagrams: 02/15/23 13:25 02/15/23 13:25 Laboratory: WBC 7.1 X10^3/uL (3.6-10.0) 02/15/23 13:25 RBC 4.48 X10^6/uL (4.7-6.0) L 02/15/23 13:25 Hgb 12.7 g/dL (13.5-18.0) L 02/15/23 13:25 Hct 38.7 % (42.0-54.0) L 02/15/23 13:25 MCV 86.4 fL (80.0-100.0) 02/15/23 13:25 MCH 28.4 pg (27.0-34.0) 02/15/23 13:25 MCHC 32.9 g/dL (33.0-35.0) L 02/15/23 13:25 RDW 21.5 % (11.6-16.5) H 02/15/23 13:25 Plt Count 272 X10^3/uL (150.0-450.0) 02/15/23 13:25 Plt Count Comment Adequate (ADEQUATE) 02/15/23 13:25 MPV 6.6 fL (7.4-11.0) L 02/15/23 13:25 Neut % (Auto) 71.9 % (42.0-75.0) 02/15/23 13:25 Lymph % (Auto) 16.4 % (21.0-51.0) L 02/15/23 13:25 [place] % (Auto) 7.6 % (0.0-13.0) 02/15/23 13:25 Eos % (Auto) 3.8 % (0.9-2.9) H 02/15/23 13:25 Baso % (Auto) 0.3 % (0.2-1.0) 02/15/23 13:25 Neut # (Auto) 5.1 x10^3/uL (2.2-4.8) H 02/15/23 13:25 Lymph # (Auto) 1.2 X10^3/uL (1.3-2.9) L 02/15/23 13:25 [place]pine # (Auto) 0.5 x10^3/uL (0.3-0.8) 02/15/23 13:25 Eos # (Auto) 0.3 x10^3/uL (0.0-0.2) H 02/15/23 13:25 Baso # (Auto) 0.0 X10^3/uL (0.0-0.1) 02/15/23 13:25 Absolute Nucleated RBC 0.0 /100WBC 02/15/23 13:25 Plt Morphology Comment Normal (NORMAL) 02/15/23 13:25 RBC Morphology Abnormal (NORMAL) 02/15/23 13:25 Anisocytosis 1+ A 02/15/23 13:25 D-Dimer 0.71 ug/ml (0.0-0.57) H 02/15/23 13:25 Sample Site Rb 02/15/23 13:11 ABG pH 7.450 (7.35-7.45) 02/15/23 13:11 ABG pCO2 36.0 mmHg (35.0-45.0) 02/15/23 13:11 ABG pO2 58.0 mmHg (80.0-100.0) L 02/15/23 13:11 ABG HCO3 25.0 mmol/L (22-26) 02/15/23 13:11 ABG O2 Saturation 91.0 % (90-100) 02/15/23 13:11 ABG Base Excess 1.2 mmol/L (-2.0-2.0) 02/15/23 13:11 Henry Test N/a 02/15/23 13:11 A-a Gradient 47.0 mmHg 02/15/23 13:11 FiO2 21.0 02/15/23 13:11 Blood Gas Comments Pt juana well elj 02/15/23 13:11 Sodium 138 mmol/L (136-145) 02/15/23 13:25 Corrected Sodium 139 mmol/L (136-145) 02/15/23 13:25 Potassium 4.1 mmol/L (3.5-5.1) 02/15/23 13:25 Chloride 103 mmol/L (98-107) 02/15/23 13:25 Carbon Dioxide 25.1 mmol/L (21-32) 02/15/23 13:25 BUN 10 mg/dL (7-18) 02/15/23 13:25 Creatinine 0.92 mg/dL (0.70-1.30) 02/15/23 13:25 Est GFR (MDRD) Af Amer > 60 (>60) 02/15/23 13:25 Est GFR (MDRD) Non-Af > 60 (>60) 02/15/23 13:25 Glucose 129 mg/dL (65-99) H 02/15/23 13:25 Calcium 8.1 mg/dL (8.5-10.1) L 02/15/23 13:25 Corrected Calcium 8.7 mg/dL (8.5-10.1) 02/15/23 13:25 Total Bilirubin 0.60 mg/dL (0.2-1.0) 02/15/23 13:25 AST 16 Units/L (15-37) 02/15/23 13:25 ALT 17 Units/L (12-78) 02/15/23 13:25 Alkaline Phosphatase 76 Units/L (46-116) 02/15/23 13:25 Troponin I High Sens 10.0 ng/L (4.0-60.0) 02/15/23 13:25 B-Natriuretic Peptide 94.1 pg/mL (0-79) H 02/15/23 13:25 Total Protein 6.8 g/dL (6.4-8.2) 02/15/23 13:25 Albumin 3.3 g/dL (3.4-5.0) L 02/15/23 13:25 Globulin 3.5 g/dL (2.5-4.5) 02/15/23 13:25 Albumin/Globulin Ratio 0.9 Ratio (1.1-2.1) L 02/15/23 13:25 Lipase 94 Units/L (73-393) 02/15/23 13:25 Total PSA 5.65 ng/mL (0.13-4.0) H 02/15/23 13:25 EKG Rate: 82 [place]: Normal Rhythm: NSR and PVCs ST: Normal Opioid Opioid Risk Tool Age (Pedro box if 16-45): No History of Preadolescent Sexual Abuse: No Total: 0 Total Score Risk Category: Low Risk Copyright: Josh WHITFIELD predicting aberrant behaviors Discharge Plan Diagnosis Discharge Problem: Exertional shortness of breath, Hypoxia Discharge Plan Patient Disposition: ADMITTED INPATIENT Condition: Stable
--- NOTE | 2023-02-15 13:33 | EKG ---
Test Reason : short of breath Blood Pressure : */* mmHG Vent. Rate : 82 BPM Atrial Rate : 82 BPM P-R Int : 152 ms QRS Dur : 78 ms QT Int : 348 ms P-R-T Axes : 40 51 16 degrees QTc Int : 406 ms Sinus rhythm with occasional premature ventricular complexes Possible Left atrial enlargement Borderline ECG No previous ECGs available Confirmed by Nilo Barrow ([id number]) on 02/15/2023 8:19:19 PM Referred By: Confirmed By: Nilo Barrow
[2023-02-15 13:39] LABS: BASOPHILS % (AUTO) 0.3 % (0.2-1.0); EOSINOPHILS # (AUTO) 0.3 x10^3/uL (0.0-0.2); EOSINOPHILS % (AUTO) 3.8 % (0.9-2.9); HEMATOCRIT 38.7 % (42.0-54.0); HEMOGLOBIN 12.7 g/dL (13.5-18.0); LYMPHOCYTES # (AUTO) 1.2 X10^3/uL (1.3-2.9); LYMPHOCYTES % (AUTO) 16.4 % (21.0-51.0); MEAN CORPUSCULAR HEMOGLOBIN 28.4 pg (27.0-34.0); MEAN CORPUSCULAR HGB CONC 32.9 g/dL (33.0-35.0); MEAN CORPUSCULAR VOLUME 86.4 fL (80.0-100.0); MEAN PLATELET VOLUME 6.6 fL (7.4-11.0); MONOCYTES # (AUTO) 0.5 x10^3/uL (0.3-0.8); MONOCYTES % (AUTO) 7.6 % (0.0-13.0); NEUTROPHILS # (AUTO) 5.1 x10^3/uL (2.2-4.8); NEUTROPHILS % (AUTO) 71.9 % (42.0-75.0); PLATELET COUNT 272 X10^3/uL (150.0-450.0); RED BLOOD COUNT 4.48 X10^6/uL (4.7-6.0); RED CELL DISTRIBUTION WIDTH 21.5 % (11.6-16.5); WHITE BLOOD COUNT 7.1 X10^3/uL (3.6-10.0)
[2023-02-15 13:53] LABS: ALANINE AMINOTRANSFERASE 17 Units/L (12-78); ALBUMIN 3.3 g/dL (3.4-5.0); ALKALINE PHOSPHATASE 76 Units/L (46-116); ASPARTATE AMINO TRANSFERASE 16 Units/L (15-37); BLOOD UREA NITROGEN 10 mg/dL (7-18); CALCIUM 8.1 mg/dL (8.5-10.1); CARBON DIOXIDE 25.1 mmol/L (21-32); CHLORIDE 103 mmol/L (98-107); COR CA(FOR HYPOALB) 8.7 mg/dL (8.5-10.1); COR NA(FOR HYPERGLY) 139 mmol/L (136-145); CREATININE 0.92 mg/dL (0.70-1.30); GLUCOSE 129 mg/dL (65-99); LIPASE 94 Units/L (73-393); POTASSIUM 4.1 mmol/L (3.5-5.1); SODIUM 138 mmol/L (136-145); TOTAL PROTEIN 6.8 g/dL (6.4-8.2); eGFR NON BLACK RACES > 60 (>60)
[2023-02-15 14:03] LABS: ANISOCYTOSIS 1+; PLATELET MORPHOLOGY COMMENT NORMAL (NORMAL)
[2023-02-15] MEDS ORDERED: ROCEPHIN VIAL 1 GRAM 1 G in NS 100 ML IV 100 ML IVP STA (15:23)
[2023-02-15] MEDS ORDERED: ROCEPHIN VIAL 1 GRAM ONE (15:25)
[2023-02-15] MEDS ORDERED: ROCEPHIN VIAL 1 GRAM IV ONE (15:31)
[2023-02-15] MEDS: ROCEPHIN VIAL 1 GRAM 1 G in NS 100 ML IV 100 ML IV SCH (15:48)
[2023-02-15] MEDS ORDERED: TYLENOL 325 MG TAB PO PRN (16:41)
--- NOTE | 2023-02-15 19:14 | CT ---
HISTORYHYPOXIA, EXERTIONAL DYSPNEASTUDYCTA CHESTCOMPARISONTECHNIQUEMultiple axial images of the chest were obtained from the thoracic inlet to the upper abdomen after the administration of IV contrast. 3D reconstructions utilizing axial MIPS imaging was performed and reviewed. Dose reduction techniques including Automated Exposure Control (AEC) and adjustment of mA and kV were utilized.FINDINGSThe heart size is mildly enlarged. There is multi-vessel coronary atherosclerosis. The main pulmonary artery measures 3.1 cm in diameter. There is excellent contrast enhancement in the pulmonary circulation and no pulmonary embolus. There are reactive sized mediastinal and hilar lymph nodes some of which are containing calcifications. The airways are grossly clear. There is subpleural emphysematous change versus bronchiectasis in several lobes. There is nonspecific interstitial prominence which could be interstitial lung disease, fibrosis, or possibly some interstitial edema. There is no pleural effusion. There is a small hiatal hernia. There is diverticulosis coli but no diverticulitis. There is no worrisome bone marrow lesion.IMPRESSION1. Cardiomegaly. 2. Negative for pulmonary embolus. 2. Mixed emphysema and interstitial lung disease. Question active interstitial lung disease versus edema.Electronically signed by: Rahul Haney (Feb 15, 2023 19:13:14)
[2023-02-15] MEDS ORDERED: ZOCOR TAB 10 MG PO SCH (21:00)
--- NOTE | 2023-02-15 23:27 | RAD ---
STUDY: FRONTAL VIEW CHESTCOMPARISON: NoneHISTORY: EXERTIONAL DYSPNEAFINDINGS:Airspace disease is seen in left mid and bilateral lower lung zones.The heart size is within normal limits.The mediastinum is unremarkable.There is no evidence of pleural effusion or gross pneumothorax.The trachea is midline.IMPRESSION:Airspace disease is seen in left mid and bilateral lower lung zones. This may represent acute or chronic airspace disease. Follow-up to complete resolution may be obtained as clinically indicated indicated.Electronically signed by: Cody Campos (Feb 15, 2023 23:26:55)
[2023-02-16 06:02] LABS: BASOPHILS % (AUTO) 0.3 % (0.2-1.0); EOSINOPHILS # (AUTO) 0.3 x10^3/uL (0.0-0.2); EOSINOPHILS % (AUTO) 4.7 % (0.9-2.9); HEMATOCRIT 36.5 % (42.0-54.0); HEMOGLOBIN 12.3 g/dL (13.5-18.0); LYMPHOCYTES # (AUTO) 1.1 X10^3/uL (1.3-2.9); LYMPHOCYTES % (AUTO) 15.5 % (21.0-51.0); MEAN CORPUSCULAR HEMOGLOBIN 28.9 pg (27.0-34.0); MEAN CORPUSCULAR HGB CONC 33.6 g/dL (33.0-35.0); MEAN PLATELET VOLUME 6.9 fL (7.4-11.0); MONOCYTES # (AUTO) 0.7 x10^3/uL (0.3-0.8); MONOCYTES % (AUTO) 9.3 % (0.0-13.0); NEUTROPHILS # (AUTO) 5.2 x10^3/uL (2.2-4.8); NEUTROPHILS % (AUTO) 70.2 % (42.0-75.0); PLATELET COUNT 269 X10^3/uL (150.0-450.0); RED BLOOD COUNT 4.24 X10^6/uL (4.7-6.0); RED CELL DISTRIBUTION WIDTH 21.5 % (11.6-16.5); WHITE BLOOD COUNT 7.4 X10^3/uL (3.6-10.0)
[2023-02-16 06:17] LABS: ALANINE AMINOTRANSFERASE 17 Units/L (12-78); ALBUMIN 2.9 g/dL (3.4-5.0); ALKALINE PHOSPHATASE 66 Units/L (46-116); ASPARTATE AMINO TRANSFERASE 14 Units/L (15-37); BLOOD UREA NITROGEN 8 mg/dL (7-18); CALCIUM 8.1 mg/dL (8.5-10.1); CARBON DIOXIDE 26.2 mmol/L (21-32); CHLORIDE 105 mmol/L (98-107); CREATININE 0.84 mg/dL (0.70-1.30); GLUCOSE 81 mg/dL (65-99); POTASSIUM 4.2 mmol/L (3.5-5.1); SODIUM 139 mmol/L (136-145); TOTAL PROTEIN 6.4 g/dL (6.4-8.2); eGFR NON BLACK RACES > 60 (>60)
[2023-02-16 06:19] LABS: ANISOCYTOSIS 1+; PLATELET MORPHOLOGY COMMENT NORMAL (NORMAL)
--- NOTE | 2023-02-16 07:52 | RAD ---
HISTORYSOBSTUDYCHEST, 1 VIEWCOMPARISONCTA chest from 02/15/2023.TECHNIQUEPA or AP view of the chestFINDINGSCardiac and mediastinal contours are within normal limits. Similar appearing bilateral interstitial opacities. No definite pleural effusion or pneumothorax.IMPRESSIONSimilar appearing interstitial opacities may be chronic acute pneumonia or edema not excluded. No significant change compared to prior radiograph.Electronically signed by: Hugh Garrett (Feb 16, 2023 07:50:52)
[2023-02-16] MEDS: ROCEPHIN VIAL 1 GRAM 1 G in NS 100 ML IV 100 ML IV SCH (08:49)
[2023-02-16] MEDS ORDERED: FLOMAX PO SCH (09:00)
[2023-02-16] MEDS ORDERED: COZAAR PO SCH (09:00)
[2023-02-16] MEDS ORDERED: PriLOSEC PO SCH (09:00)
[2023-02-16] MEDS ORDERED: PROTONIX TAB 40 MG PO SCH (09:00)
[2023-02-16] MEDS ORDERED: ASPIRIN EC 81 MG PO SCH (09:00)
[2023-02-16] MEDS ORDERED: PLAVIX PO SCH (09:00)
[2023-02-16 10:36] VITALS: BMI 18.9
[2023-02-16 12:06] VITALS: BP 140/69; PULSE 72; TEMP 98.5; O2SAT 92
--- NOTE | 2023-02-16 14:18 | DR.CARTERS ---
Short Stay Summary - Admission Date Date of Admission: 02/15/23 - Discharge Date Discharge Date: 02/16/23 - Admission Diagnoses (1) Exertional shortness of breath Status: Acute (2) Hypoxia Status: Acute (3) Bronchitis, acute Status: Acute (4) Emphysema lung Status: Acute - Hospital Course Hospital Course: IS A 77 YEAR OLD PATIENT OF OURS. HE PRESENTED TO THE ER WITH COMPLAINTS OF SHORTNESS OF BREATH AND LOW OXYGEN SATURATIONS. HE REPORTED THAT HE HAS BEEN HAVING EXERTIONAL SHORTNESS OF BREATH FOR THE PAST MONTH. HE IS FINE AT REST, BUT HAS MODERATE SHORTNESS OF BREATH WITH MINIMAL EXERTION. ADDITIONALLY, HE COMPLAINS OF A COUGH THAT IS PRODUCTIVE OF WHITE SPUTUM. HE DENIED FEVER, CHEST PAIN, BOWEL OR BLADDER ISSUES, OR SWELLING. HE ADMITS TO DECREASED APPETITE. HIS PMH INCLUDES CAD, DYSLIPIDEMIA, HTN, SLEEP APNEA, BPH, LIVER LESIONS, LIVER BIOPSY, CARDIAC STENTS, AND HERNIA REPAIR. HIS OXYGEN SATURATIONS WERE APPARENTLY IN THE 80s ON ROOM AIR AT HOME. ON ARRIVAL TO THE HOSPITAL, VITALS WERE: 98.9-100-24-86%RA-158/71. HE WAS PLACED ON OXYGEN VIA NASAL CANNULA AT 2 LPM. SATURATIONS INCREASED TO 96%. LABS WERE OBTAINED. WBC 7.1, RBC 4.48, HGB 12.7, HCT 38.7, PLT COUNT 272, D-DIMER 0.71, SODIUM 139, POTASSIUM 4.1, CHLORIDE 103, CARBON DIOXIDE 25.1, BUN 10, CREATININE 0.92, GLUCOSE 129, CALCIUM 8.1, AST 16, ALT 17, ALK PHOS 76, TROPONIN 10, BNP 94.1, TOTAL PROTEIN 6.8, ALBUMIN 3.3, PSA 5.65. AN ABG WAS OBTAINED AND REVEALED: PH 7.450, PC02 36, P02 58, HC03 25, 02 SAT 91, A-A GRADIENT 47, FI02 21.0. A CHEST XRAY WAS OBTAINED AND REVEALED: Airspace disease is seen in left mid and bilateral lower lung zones. This may represent acute or chronic airspace disease. CHEST CTA REVEALED: 1. Cardiomegaly. 2. Negative for pulmonary embolus. 2. Mixed emphysema and interstitial lung disease. Question active interstitial lung disease versus edema. EKG REVEALED: SINUS RHYTHM WITH OCCASIONAL PVCs. HR 82. IN THE ER, HE WAS GIVEN ROCEPHIN 1G IV X 1. HE WAS ADMITTED TO THE HOSPITAL FOR FURTHER EVALUATION AND TREATMENT OF EXERTIONAL DYSPNEA, HYPOXIA, ACUTE BRONCHITIS, EMPHYSEMA. HE WAS STARTED ON ROCEPHIN 1G IV DAILY. HIS HOME MEDICATIONS OF ASPIRIN, PLAVIX, LOSARTAN, PANTOPRAZOLE, SIMVASTATIN, AND TAMSULOSIN WERE RESUMED. WE PLANNED TO OBTAIN AN ECHO, SPUTUM CULTURE, AIT RESPIRATORY PANEL. WE ORDERED A LIVER ULTRASOUND DUE TO PAST HX OF LIVER LESIONS. OTHERWISE, WE PLANNED TO FOLLOW UP WITH AM LABS AND CONTINUE TO MONITOR. ON THE MORNING FOLLOWING ADMISSION, PATIENT IS ALERT AND ORIENTED, LYING IN BED ON MORNING ROUNDS. HE HAS HAD AN UNEVENTFUL NIGHT. HE CONTINUES TO COMPLAIN OF INTERMITTENT SHORTNESS OF BREATH AND COUGH, BUT REPORTS MUCH IMPROVEMENT SINCE ADMISSION. HIS SATURATIONS HAVE REMAINED IN THE 90s SINCE ADMISSION. ON EXAMINATION, HEART IS REGULAR IN RATE AND RHYTHM. BILATERAL LUNGS ARE NOTED WITH DIMINISHED LUNG SOUNDS THROUGHOUT. ABDOMEN IS ROUND, SOFT, AND NON-TENDER WITH NORMAL BOWEL SOUNDS NOTED IN ALL QUADRANTS. GOOD MOVEMENT NOTED TO UPPER AND LOWER EXTREMITIES WITH NO EDEMA NOTED. HIS VITALS THIS MORNING ARE: 98.4-84-20-90%-148/68. LABS WERE OBTAINED. WBC 7.4, RBC 4.24, HGB 12.3, HCT 36.5, PLT COUNT 259, D-DIMER 0.71, SODIUM 139, POTASSIUM 4.2, CHLORIDE 105, CARBON DIOXIDE 26.2, BUN 8, CREATININE 0.84, GLUCOSE 81, CALCIUM 8.1, AST 14, ALT 17, ALK PHOS 66, TOTAL PROTEIN 6.4, ALBUMIN 3.5. A CHEST XRAY WAS REPEATED AND REVEALED: Similar appearing interstitial opacities may be chronic acute pneu monia or edema not excluded. No significant change compared to prior radiograph. ECHO WAS OBTAINED AND REVEALED AN EJECTION FRACTION OF 68%, MODERATE AORTIC VALVE LEAFLET THICKENING WITH MILD CALCIFICATION, TRILEAFLET AORTIC VALVE WITH MODERATE REGURGITATION, STRUCTURALLY NORMAL MITRAL VALVE WITH MODERATE REGURGITATION, STRUCTURALLY NORMAL TRICUSPID VALVE WITH MODERATE REGURGITATION, SEVERE PULMONARY HTN, RVSP 72mmHg. WE PLANNED FOR DISCHARGE. INSTRUCTIONS FOR MEDICATIONS AND FOLLOW-UP WERE DISCUSSED WITH PATIENT AND HIS FAMILY. THEY VERBALIZED UNDERSTANDING OF ALL ORDERS. HE WAS GIVEN NEW PRESCRIPTIONS FOR LEVAQUIN 500MG DAILY X 10 DAYS AND DUONEBS TID PRN. HE WAS INSTRUCTED TO CONTINUE HIS OTHER MEDICATIONS WITH NO CHANGES MADE TO DOSAGES. HE WAS ADVISED TO FOLLOW-UP IN [facility] OFFICE IN 1 WEEK. WE WILL ALSO REFER HIM TO . PATIENT DISCHARGED HOME WITH FAMILY IN STABLE CONDITION. TIME SPENT ON CLINICAL ASSESSMENT, REVIEWING LABS AND IMAGING, DECISION MAKING, DISCHARGE INSTRUCTIONS, PREPARING DISCHARGE PAPERS, AND DOCUMENTATION GREATER THAN 75 MINUTES. - Discharge Medications Discharge Medications: Home Medication List omeprazole 40 mg capsule,delayed release 40 mg PO QDAY 02/15/23 [History] ipratropium 0.5 mg-albuterol 3 mg (2.5 mg base)/3 mL nebulization soln 3 ml inhalation TID #50 mL 02/16/23 [Rx] levofloxacin 500 mg tablet 500 mg PO DAILY #10 tabs 02/16/23 [Rx] Prescriptions: ipratropium-albuterol Yusef John levofloxacin Yusef John - Discharge Plan Disposition: HOME HEALTH SERVICE Condition: Stable Prescriptions: ipratropium-albuterol 3 ml inhalation TID #50 mL levofloxacin 500 mg PO DAILY #10 tabs - Follow up/Referrals Follow up/Referrals: DIOGO JAMES [STAFF PHYSICIAN] - Yusef John [Primary Care Provider] - 02/21/23 10:40 am COMFORT CALI [REFERRING] - 02/16/23 (Office staff requested referral due to not seen in the last 3 years. Referral faxed. Office staff will contact with date and time.) - Instructions Instructions: Hypoxia, Shortness of Breath, Adult, Irsp-ip-Gjad Additional Instructions: DIET TOLERATED. ACTIVITY TOLERATED. Forms: [facility]
--- NOTE | 2023-02-16 14:53 | US ---
HISTORYLIVER LESIONS SEEN ON CT FROM TUDYLIVERCOMPARISONCTA chest 02/15/2023TECHNIQUEThirty-four images made by the nurse general duty. Pisano scale and color-flow images of the right upper quadrant were obtained.FINDINGSThe liver has normal echogenicity and size. No mass or intrahepatic biliary duct dilatation is present. The intrahepatic inferior vena cava was imaged.The portal vein is patent with blood flow toward the liver. The visualized hepatic veins are patent with blood flow toward the right atrium. The hepatic artery was patent.The pancreas is not well identified due to overlying bowel gas.The gallbladder is normally distended with no stones, wall thickening, or pericholecystic fluid. No extrahepatic biliary duct dilatation; common duct is normal.The right kidney was not well seen.IMPRESSION1. No significant abnormality2. No evidence for liver massElectronically signed by: Osmar Simmons (Feb 16, 2023 14:51:56)
== END 2023-02-16 13:50 | disposition home health service (06) ==
LOC: MED/SURG 12:57 → ER 12:57 → MED/SURG 15:32
PROVIDERS: ADMIT Internal Medicine; ATTEND Internal Medicine
DX: Z79.01 Long term (current) use of anticoagulants; J20.8 Acute bronchitis due to other specified organisms; I25.10 Atherosclerotic heart disease of native coronary artery without angina pectoris; I10 Essential (primary) hypertension; Z87.19 Personal history of other diseases of the digestive system; J43.8 Other emphysema; R09.02 Hypoxemia; R06.02 Shortness of breath